=== PATIENT | male | born 1965 | race Caucasian/White ===

== ENCOUNTER 2021-04-16 12:44 | Inpatient (IN) ==
[2021-04-16] MEDS ORDERED: PHARMACY CONSULT - VANCOMYCIN XX SCH (15:00)
[2021-04-16] MEDS: LR 1000 ML IV 1,000 ML IV SCH (15:30)
[2021-04-16 15:35] LABS: BASOPHILS % (AUTO) 0.1 % (0.2-1.0); EOSINOPHILS # (AUTO) 0.1 x10^3/uL (0.0-0.2); EOSINOPHILS % (AUTO) 0.3 % (0.9-2.9); HEMATOCRIT 41.7 % (42.0-54.0); HEMOGLOBIN 13.9 g/dL (13.5-18.0); LYMPHOCYTES # (AUTO) 0.9 X10^3/uL (1.3-2.9); LYMPHOCYTES % (AUTO) 3.9 % (21.0-51.0); MEAN CORPUSCULAR HEMOGLOBIN 28.1 pg (27.0-34.0); MEAN CORPUSCULAR HGB CONC 33.5 g/dL (33.0-35.0); MEAN CORPUSCULAR VOLUME 84.1 fL (80.0-100.0); MEAN PLATELET VOLUME 8.6 fL (7.4-11.0); MONOCYTES # (AUTO) 1.2 x10^3/uL (0.3-0.8); MONOCYTES % (AUTO) 5.6 % (0.0-13.0); NEUTROPHILS # (AUTO) 19.9 x10^3/uL (2.2-4.8); NEUTROPHILS % (AUTO) 90.1 % (42.0-75.0); PLATELET COUNT 271 X10^3/uL (150.0-450.0); RED BLOOD COUNT 4.96 X10^6/uL (4.7-6.0); RED CELL DISTRIBUTION WIDTH 17.8 % (11.6-16.5); WHITE BLOOD COUNT 22.1 X10^3/uL (3.6-10.0)
[2021-04-16 15:42] VITALS: BMI 38.7
[2021-04-16 15:46] LABS: CALCIUM 9.7 mg/dL (8.5-10.1); CARBON DIOXIDE 25.1 mmol/L (21-32); CREATININE 1.77 mg/dL (0.70-1.30); TOTAL PROTEIN 8.3 g/dL (6.4-8.2)
[2021-04-16] MEDS: VANCOMYCIN IV *PREMIX 1 G/200 ML BAG 1 G/200 ML PIGGYBACK IV SCH (16:01)
[2021-04-16 16:22] LABS: ALBUMIN 2.9 g/dL (3.4-5.0); COR CA(FOR HYPOALB) 10.6 mg/dL (8.5-10.1)
[2021-04-16 17:07] LABS: PLATELET MORPHOLOGY COMMENT NORMAL (NORMAL)
[2021-04-16] MEDS: COREG TAB 12.5 MG PO SCH (20:06)
[2021-04-16] MEDS ORDERED: ZOSYN VIAL 3.375 GRAMS 3.375 G in NS 100 ML IV + SPIKE MINIBAG* 100 ML IV SCH (21:00)
[2021-04-17] MEDS: VANCOMYCIN IV *PREMIX 1 G/200 ML BAG 1 G/200 ML PIGGYBACK IV SCH ×3 (00:46→16:39)
[2021-04-17] MEDS: LR 1000 ML IV 1,000 ML IV SCH ×4 (00:54→22:51)
[2021-04-17 08:23] LABS: BASOPHILS % (AUTO) 0.2 % (0.2-1.0); EOSINOPHILS # (AUTO) 0.2 x10^3/uL (0.0-0.2); EOSINOPHILS % (AUTO) 0.9 % (0.9-2.9); HEMATOCRIT 39.6 % (42.0-54.0); HEMOGLOBIN 13.1 g/dL (13.5-18.0); LYMPHOCYTES # (AUTO) 1.1 X10^3/uL (1.3-2.9); LYMPHOCYTES % (AUTO) 5.4 % (21.0-51.0); MEAN CORPUSCULAR HEMOGLOBIN 27.9 pg (27.0-34.0); MEAN CORPUSCULAR HGB CONC 33.1 g/dL (33.0-35.0); MEAN CORPUSCULAR VOLUME 84.3 fL (80.0-100.0); MEAN PLATELET VOLUME 8.4 fL (7.4-11.0); MONOCYTES # (AUTO) 1.3 x10^3/uL (0.3-0.8); MONOCYTES % (AUTO) 6.5 % (0.0-13.0); NEUTROPHILS # (AUTO) 17.3 x10^3/uL (2.2-4.8); PLATELET COUNT 305 X10^3/uL (150.0-450.0); RED BLOOD COUNT 4.69 X10^6/uL (4.7-6.0); RED CELL DISTRIBUTION WIDTH 18.4 % (11.6-16.5); WHITE BLOOD COUNT 19.9 X10^3/uL (3.6-10.0)
[2021-04-17 08:31] LABS: CREATININE 1.51 mg/dL (0.70-1.30); VANCOMYCIN,TROUGH 18.4 ug/mL (15-20)
[2021-04-17 08:32] LABS: ALBUMIN 2.3 g/dL (3.4-5.0); CALCIUM 9.4 mg/dL (8.5-10.1); CARBON DIOXIDE 23.5 mmol/L (21-32); COR CA(FOR HYPOALB) 10.8 mg/dL (8.5-10.1); CREATININE 1.54 mg/dL (0.70-1.30); TOTAL PROTEIN 7.8 g/dL (6.4-8.2)
[2021-04-17] MEDS ORDERED: PATIENT'S HOME MEDICATION PO SCH (09:00)
[2021-04-17] MEDS: COREG TAB 12.5 MG PO SCH ×2 (09:49→22:21)
[2021-04-17] MEDS: PATIENT'S HOME MEDICATION PO SCH ×2 (09:50→21:29)
[2021-04-17] MEDS: FLOMAX PO SCH (09:50)
[2021-04-17] MEDS: PLAVIX PO SCH (09:51)
[2021-04-17] MEDS: ZOSYN VIAL 3.375 GRAMS 3.375 G in NS 100 ML IV + SPIKE MINIBAG* 100 ML IV SCH ×3 (09:51→21:30)
[2021-04-17] MEDS: HumuLIN R SUBCUT PRN ×3 (11:24→22:22)
--- NOTE | 2021-04-17 12:09 | RAD ---
HISTORYSOBSTUDYCHEST x-ray, 1 VIEWCOMPARISONX-ray 02/10/2019FINDINGSProbable CHF. There is likely pulmonary edema. These findings have worsened since prior study. Probable mild fluid in the right minor fissure without blunting of the CP angles. Mild linear atelectasis in the left upper lobe, similar to prior study. No evidence of pneumothorax. Prior cervical spine fusion.IMPRESSIONCHF and pulmonary edema.Electronically signed by: Kam Burrell (Apr 17, 2021 12:06:54)
[2021-04-17] MEDS ORDERED: PHARMACY COMMENT IV ONE (13:30)
[2021-04-17 16:22] LABS: CREATININE 1.63 mg/dL (0.70-1.30); VANCOMYCIN,TROUGH 9.7 ug/mL (15-20)
[2021-04-17] MEDS ORDERED: VANCOMYCIN HCL 500 MG in D5W 100 ML IV 100 ML IV ONE (17:00)
[2021-04-17] MEDS ORDERED: D5W 250 ML IV 250 ML IV ONE (17:32)
[2021-04-17] MEDS ORDERED: VANCOMYCIN HCL ONE (17:32)
[2021-04-17] MEDS: SNACK - Diabetic Appropriate PO SCH (20:46)
[2021-04-17] MEDS ORDERED: LASIX IVP STA (21:14)
[2021-04-17] MEDS: ARIMIDEX PO SCH (22:21)
[2021-04-18] MEDS: ZOSYN VIAL 3.375 GRAMS 3.375 G in NS 100 ML IV + SPIKE MINIBAG* 100 ML IV SCH ×4 (04:00→22:22)
[2021-04-18] MEDS ORDERED: VANCOMYCIN HCL 500 MG, VANCOMYCIN HCL 1 G in D5W 250 ML IV 250 ML IV SCH (05:00)
[2021-04-18 06:05] LABS: BASOPHILS # (AUTO) 0.1 X10^3/uL (0.0-0.1); BASOPHILS % (AUTO) 0.4 % (0.2-1.0); EOSINOPHILS # (AUTO) 0.5 x10^3/uL (0.0-0.2); EOSINOPHILS % (AUTO) 3.7 % (0.9-2.9); HEMATOCRIT 38.8 % (42.0-54.0); HEMOGLOBIN 12.9 g/dL (13.5-18.0); LYMPHOCYTES # (AUTO) 1.1 X10^3/uL (1.3-2.9); LYMPHOCYTES % (AUTO) 7.8 % (21.0-51.0); MEAN CORPUSCULAR HEMOGLOBIN 27.8 pg (27.0-34.0); MEAN CORPUSCULAR HGB CONC 33.2 g/dL (33.0-35.0); MEAN CORPUSCULAR VOLUME 83.6 fL (80.0-100.0); MEAN PLATELET VOLUME 8.2 fL (7.4-11.0); MONOCYTES # (AUTO) 0.9 x10^3/uL (0.3-0.8); MONOCYTES % (AUTO) 6.7 % (0.0-13.0); NEUTROPHILS # (AUTO) 11.1 x10^3/uL (2.2-4.8); NEUTROPHILS % (AUTO) 81.4 % (42.0-75.0); PLATELET COUNT 312 X10^3/uL (150.0-450.0); RED BLOOD COUNT 4.64 X10^6/uL (4.7-6.0); RED CELL DISTRIBUTION WIDTH 18.1 % (11.6-16.5); WHITE BLOOD COUNT 13.7 X10^3/uL (3.6-10.0)
[2021-04-18 06:14] LABS: ALANINE AMINOTRANSFERASE 29 Units/L (12-78); ALBUMIN 2.1 g/dL (3.4-5.0); ALKALINE PHOSPHATASE 115 Units/L (46-116); ASPARTATE AMINO TRANSFERASE 30 Units/L (15-37); BLOOD UREA NITROGEN 26 mg/dL (7-18); CALCIUM 9.4 mg/dL (8.5-10.1); CARBON DIOXIDE 22.5 mmol/L (21-32); CHLORIDE 99 mmol/L (98-107); COR CA(FOR HYPOALB) 10.9 mg/dL (8.5-10.1); COR NA(FOR HYPERGLY) 138 mmol/L (136-145); CREATININE 1.11 mg/dL (0.70-1.30); SODIUM 134 mmol/L (136-145); TOTAL PROTEIN 7.1 g/dL (6.4-8.2); eGFR NON BLACK RACES > 60 (>60)
[2021-04-18] MEDS ORDERED: HumuLIN R ONE (06:29)
[2021-04-18] MEDS: HumuLIN R SUBCUT PRN ×4 (06:36→22:00)
[2021-04-18] MEDS ORDERED: LASIX IVP ONE ×2 (07:32→08:43)
[2021-04-18] MEDS ORDERED: LR 1000 ML IV 1,000 ML IV ONE (08:43)
[2021-04-18] MEDS ORDERED: REGEN-COV VIAL 10 ML, DRUG FILTER EXTENSION SET * 1 EA in NS 100 ML IV 100 ML IV ONE ×2 (09:00)
[2021-04-18] MEDS: COREG TAB 12.5 MG PO SCH ×2 (09:14→22:23)
[2021-04-18] MEDS: LR 1000 ML IV 1,000 ML IV SCH ×2 (09:14→15:02)
[2021-04-18] MEDS: GLUCOPHAGE XR 24-HR PO SCH (09:14)
[2021-04-18] MEDS: FLOMAX PO SCH (09:15)
[2021-04-18] MEDS: PLAVIX PO SCH (09:15)
--- NOTE | 2021-04-18 09:53 | VAS ---
HISTORYLEFT LEG CELLULITIS, EDEMA, REDNESSExtremity pain, swelling, and edema.Study: Bilateral lower extremity Doppler venous ultrasound.TECHNIQUE: Multiple grande scale and color flow Doppler images of the deep venous system were obtained of the [right and left] lower extremity.FINDINGS:The deep venous system of the right and left lower extremities were evaluated from the level of the common femoral veins through the popliteal veins, bilaterally.Normal color flow and augmentation can be observed. In addition, normal compression is seen throughout the deep venous system.IMPRESSION:1. Negative examination for DVT.Electronically signed by: SHA SINGER III (Apr 18, 2021 09:50:29)
[2021-04-18] MEDS ORDERED: PHARMACY CONSULT - LOVENOX XX SCH (10:00)
[2021-04-18] MEDS: LOVENOX INJ 40 MG SYR SC SCH (10:13)
[2021-04-18] MEDS ORDERED: MILK OF MAGNESIA PO PRN (11:06)
[2021-04-18] MEDS: VANCOMYCIN IV *PREMIX 1.5 G/300 ML BAG 1.5 G/300 ML PIGGYBACK IV SCH (16:19)
[2021-04-18] MEDS ORDERED: NORCO 10/325 TAB ONE (17:30)
[2021-04-18] MEDS: NORCO 10/325 TAB PO PRN (17:32)
[2021-04-18] MEDS: COLACE CAP 100 MG PO SCH (22:22)
[2021-04-18] MEDS: SNACK - Diabetic Appropriate PO SCH (22:22)
[2021-04-18] MEDS: ARIMIDEX PO SCH (22:23)
[2021-04-19] MEDS: NORCO 10/325 TAB PO PRN ×2 (00:40→18:52)
[2021-04-19] MEDS: ZOSYN VIAL 3.375 GRAMS 3.375 G in NS 100 ML IV + SPIKE MINIBAG* 100 ML IV SCH ×4 (02:55→21:15)
[2021-04-19] MEDS ORDERED: PIGGYBACK IV ONE (04:47)
[2021-04-19] MEDS ORDERED: VANCOMYCIN IV ONE (04:47)
[2021-04-19] MEDS: VANCOMYCIN IV *PREMIX 1.5 G/300 ML BAG 1.5 G/300 ML PIGGYBACK IV SCH ×2 (04:57→17:58)
[2021-04-19 06:58] LABS: BASOPHILS # (AUTO) 0.1 X10^3/uL (0.0-0.1); BASOPHILS % (AUTO) 0.5 % (0.2-1.0); EOSINOPHILS # (AUTO) 0.6 x10^3/uL (0.0-0.2); EOSINOPHILS % (AUTO) 5.3 % (0.9-2.9); HEMATOCRIT 40.7 % (42.0-54.0); HEMOGLOBIN 13.5 g/dL (13.5-18.0); LYMPHOCYTES # (AUTO) 1.3 X10^3/uL (1.3-2.9); LYMPHOCYTES % (AUTO) 11.2 % (21.0-51.0); MEAN CORPUSCULAR HEMOGLOBIN 27.8 pg (27.0-34.0); MEAN CORPUSCULAR HGB CONC 33.1 g/dL (33.0-35.0); MEAN CORPUSCULAR VOLUME 83.9 fL (80.0-100.0); MEAN PLATELET VOLUME 7.9 fL (7.4-11.0); MONOCYTES % (AUTO) 9.1 % (0.0-13.0); NEUTROPHILS # (AUTO) 8.4 x10^3/uL (2.2-4.8); NEUTROPHILS % (AUTO) 73.9 % (42.0-75.0); PLATELET COUNT 363 X10^3/uL (150.0-450.0); RED BLOOD COUNT 4.85 X10^6/uL (4.7-6.0); RED CELL DISTRIBUTION WIDTH 18.1 % (11.6-16.5); WHITE BLOOD COUNT 11.4 X10^3/uL (3.6-10.0)
[2021-04-19 07:14] LABS: ALANINE AMINOTRANSFERASE 31 Units/L (12-78); ALBUMIN 2.1 g/dL (3.4-5.0); ALKALINE PHOSPHATASE 115 Units/L (46-116); ASPARTATE AMINO TRANSFERASE 22 Units/L (15-37); BLOOD UREA NITROGEN 20 mg/dL (7-18); CALCIUM 9.2 mg/dL (8.5-10.1); CHLORIDE 99 mmol/L (98-107); COR CA(FOR HYPOALB) 10.7 mg/dL (8.5-10.1); COR NA(FOR HYPERGLY) 141 mmol/L (136-145); SODIUM 138 mmol/L (136-145); TOTAL PROTEIN 7.3 g/dL (6.4-8.2); eGFR NON BLACK RACES > 60 (>60)
[2021-04-19] MEDS ORDERED: COZAAR PO SCH (10:00)
[2021-04-19] MEDS: FLOMAX PO SCH (10:01)
[2021-04-19] MEDS: LOVENOX INJ 40 MG SYR SC SCH (10:02)
[2021-04-19] MEDS: PLAVIX PO SCH (10:05)
[2021-04-19] MEDS: LR 1000 ML IV 1,000 ML IV SCH ×4 (10:21→23:00)
[2021-04-19] MEDS: GLUCOPHAGE XR 24-HR PO SCH (10:23)
[2021-04-19] MEDS: HumuLIN R SUBCUT PRN ×3 (12:46→21:00)
[2021-04-19] MEDS ORDERED: PHARMACY COMMENT IV ONE (16:30)
[2021-04-19 17:41] LABS: CREATININE 0.87 mg/dL (0.70-1.30); VANCOMYCIN,TROUGH 10.3 ug/mL (15-20)
[2021-04-19] MEDS: SNACK - Diabetic Appropriate PO SCH (20:05)
[2021-04-19] MEDS: ARIMIDEX PO SCH (21:06)
[2021-04-19] MEDS: COLACE CAP 100 MG PO SCH (21:07)
[2021-04-19] MEDS: COREG TAB 12.5 MG PO SCH (21:15)
[2021-04-20] MEDS: NORCO 10/325 TAB PO PRN (03:44)
[2021-04-20] MEDS: ZOSYN VIAL 3.375 GRAMS 3.375 G in NS 100 ML IV + SPIKE MINIBAG* 100 ML IV SCH ×2 (03:46→08:41)
[2021-04-20] MEDS: HumuLIN R SUBCUT PRN ×2 (03:47→06:21)
[2021-04-20] MEDS: VANCOMYCIN IV *PREMIX 1.5 G/300 ML BAG 1.5 G/300 ML PIGGYBACK IV SCH (05:51)
[2021-04-20 07:04] LABS: BASOPHILS # (AUTO) 0.1 X10^3/uL (0.0-0.1); BASOPHILS % (AUTO) 0.5 % (0.2-1.0); EOSINOPHILS # (AUTO) 0.5 x10^3/uL (0.0-0.2); EOSINOPHILS % (AUTO) 4.5 % (0.9-2.9); HEMATOCRIT 41.3 % (42.0-54.0); HEMOGLOBIN 13.6 g/dL (13.5-18.0); LYMPHOCYTES # (AUTO) 1.6 X10^3/uL (1.3-2.9); LYMPHOCYTES % (AUTO) 13.4 % (21.0-51.0); MEAN CORPUSCULAR HEMOGLOBIN 27.5 pg (27.0-34.0); MEAN CORPUSCULAR VOLUME 83.4 fL (80.0-100.0); MONOCYTES % (AUTO) 8.5 % (0.0-13.0); NEUTROPHILS # (AUTO) 8.5 x10^3/uL (2.2-4.8); NEUTROPHILS % (AUTO) 73.1 % (42.0-75.0); PLATELET COUNT 415 X10^3/uL (150.0-450.0); RED BLOOD COUNT 4.94 X10^6/uL (4.7-6.0); RED CELL DISTRIBUTION WIDTH 17.9 % (11.6-16.5); WHITE BLOOD COUNT 11.6 X10^3/uL (3.6-10.0)
[2021-04-20 07:13] LABS: ALANINE AMINOTRANSFERASE 30 Units/L (12-78); ALBUMIN 2.1 g/dL (3.4-5.0); ALKALINE PHOSPHATASE 102 Units/L (46-116); ASPARTATE AMINO TRANSFERASE 18 Units/L (15-37); BLOOD UREA NITROGEN 11 mg/dL (7-18); CARBON DIOXIDE 29.1 mmol/L (21-32); CHLORIDE 101 mmol/L (98-107); COR CA(FOR HYPOALB) 10.5 mg/dL (8.5-10.1); COR NA(FOR HYPERGLY) 141 mmol/L (136-145); CREATININE 0.83 mg/dL (0.70-1.30); SODIUM 138 mmol/L (136-145); TOTAL PROTEIN 7.2 g/dL (6.4-8.2); eGFR NON BLACK RACES > 60 (>60)
[2021-04-20] MEDS: PLAVIX PO SCH (08:44)
[2021-04-20] MEDS: LOVENOX INJ 40 MG SYR SC SCH (08:45)
[2021-04-20] MEDS: GLUCOPHAGE XR 24-HR PO SCH (08:46)
[2021-04-20] MEDS: COREG TAB 12.5 MG PO SCH (08:46)
[2021-04-20] MEDS: FLOMAX PO SCH (08:47)
[2021-04-20] MEDS ORDERED: ZESTRIL TAB 40 MG PO SCH (09:00)
[2021-04-20 10:04] VITALS: BP 138/68
== END 2021-04-20 12:25 | disposition home or self-care (01) | DRG 603 ==
LOC: OBS → OBSVTOIN 12:47
PROVIDERS: ADMIT Obstetrics & Gynecology Obstetrics; ATTEND Obstetrics & Gynecology Obstetrics
DX: L03.116 Cellulitis of left lower limb; Z20.822 Contact with and (suspected) exposure to COVID-19; R06.02 Shortness of breath; I50.9 Heart failure, unspecified

== ENCOUNTER 2021-04-28 16:00 | Inpatient (IN) ==
[2021-04-28 16:28] VITALS: BMI 38.0
--- NOTE | 2021-04-28 19:42 | DR.EXTPAIN ---
HPI Time seen Time Seen by Provider: 04/28/21 19:32 PCP Primary Care Physician: ANGELINA HPI Comment HPI Comment: According to pt he was admitted to hospital for iv antibiotics,approx 2 week ago after failed outpatient treatment for left leg cellulitis. He did have venous doppler study done to make sure there was no DVT. Pt was discharged on oral antibiotics and now concerned that he may need admission again as oral antibiotics are not helpful. leg is becoming more swollen and painful .Pt has hx of DM type2 uncontrolled with blood sugar running over 200 Complaint/Symptoms Chief Complaint Doctor Comments: left leg pain and swelling Chief Complaint:: PT C/O LT LOWER LEG. PT STATES HE WAS ADMITTED LAST WEEK FOR LLE CELLULITIS. PT WAS SENT HOME ON ORAL ANTIBIOTICS. PT STATES HIS LEG IS GETTING WORSE. PT STATES HE HAS BEEN KEEPING THE DRESSING CHANGED DIRECTED. PT STATES TH REDNESS AND SWELLING IS GETTING WORSE. COVID-19 Coronavirus risk:travel/contact w/high risk person: No Has patient experienced Coronavirus symptoms: No Nurses notes reviewed Nurses Notes Review: Yes Source History Provided: Patient Mode of arrival Mode of Arrival: Ambulatory Timing Onset of Chief Complaint: 04/14/21 Context History of: None Associated signs and symptoms Associated Signs and Symptoms: None PMH PMH Past Medical History: No Past Medical History: CVA, Diabetes and Dyslipidemia Past Surgical History: Yes Surgical History: Appendectomy and Ortho Surgery Past Surgical History Comment: BACK SURGERY, FOOT SURGERY Family History History of Family Medical Conditions: No Social History Does any household member use tobacco: No Alcohol Use: None Do you use any recreational Drugs:: No Lives With: Alone Travel Risk Coronavirus risk:travel/contact w/high risk person: No Has patient experienced Coronavirus symptoms: No Infectious screening In the last 2 months have you had wt loss of >10#?: NO Have you had fever, night sweats or hemotysis?: No Have you traveled outside the country in the last 6 months?: No Isolation: Standard ROS Review of Systems Constitutional: No Symptoms Reported Eyes: No Symptoms Reported ENTM: No Symptoms Reported Respiratoy: No Symptoms Reported Cardiovascular: No Symptoms Reported Gastrointestinal/Abdominal: No Symptoms Reported Genitourinary: No Symptoms Reported Musculoskeletal: See HPI Integumentary: No Symptoms Reported PE Vital Signs Vitals: Temperature 97.4 F Pulse Rate 110 Respiratory Rate 20 Blood Pressure [Left Arm] 138/68 Blood Pressure 131/69 O2 Sat by Pulse Oximetry 96 General Limitations: No Limitations General Appearance: Alert and Anxious Head Head Exam: Atraumatic and Normocephalic Eyes Eye exam: PERRL and EOMI ENT ENT Exam: Normal Oropharynx and Mucous Membranes Moist Neck Neck Exam: Normal Inspection and Full ROM Chest Chest Inspection: Normal Inspection and Symmetric Chest Wall Rise Respiratory Respiratory Exam: Normal Lung Sounds Bilat Respiratory Exam: Bilateral: Clear to Auscultation Abdominal Exam Abdominal Exam: Normal Inspection, Normal Bowel Sounds and Soft Other Exam Other Exam: left lower ext pos erythematous swollen 30 cm leg and foot ulcer with central necrotic area of 12x9 cm.hard to feel peripheral pulses due to swelling MDM Differential Diagnosis Differential Diagnosis: Other ( left leg and foot ulcer lateral aspect ) COURSE Treatment Treatment: xray of left tib fib to check for osteomyelitis spoke with Dr MCCAULEY AGREED TO ACCEPT PATIHERON WILL ADMIT UNDER HIS CARE ROR Labs Reviewed Result Diagrams: 04/28/21 20:00 04/28/21 20:00 Laboratory: WBC 11.6 X10^3/uL (3.6-10.0) H 04/28/21 20:00 RBC 4.57 X10^6/uL (4.7-6.0) L 04/28/21 20:00 Hgb 12.7 g/dL (13.5-18.0) L 04/28/21 20:00 Hct 38.7 % (42.0-54.0) L 04/28/21 20:00 MCV 84.6 fL (80.0-100.0) 04/28/21 20:00 MCH 27.8 pg (27.0-34.0) 04/28/21 20:00 MCHC 32.9 g/dL (33.0-35.0) L 04/28/21 20:00 RDW 16.3 % (11.6-16.5) 04/28/21 20:00 Plt Count 316 X10^3/uL (150.0-450.0) 04/28/21 20:00 MPV 8.0 fL (7.4-11.0) 04/28/21 20:00 Neut % (Auto) 66.7 % (42.0-75.0) 04/28/21 20:00 Lymph % (Auto) 21.6 % (21.0-51.0) 04/28/21 20:00 [place] % (Auto) 8.3 % (0.0-13.0) 04/28/21 20:00 Eos % (Auto) 2.4 % (0.9-2.9) 04/28/21 20:00 Baso % (Auto) 1.0 % (0.2-1.0) 04/28/21 20:00 Neut # (Auto) 7.8 x10^3/uL (2.2-4.8) H 04/28/21 20:00 Lymph # (Auto) 2.5 X10^3/uL (1.3-2.9) 04/28/21 20:00 [place] # (Auto) 1.0 x10^3/uL (0.3-0.8) H 04/28/21 20:00 Eos # (Auto) 0.3 x10^3/uL (0.0-0.2) H 04/28/21 20:00 Baso # (Auto) 0.1 X10^3/uL (0.0-0.1) 04/28/21 20:00 Absolute Nucleated RBC 0.0 /100WBC 04/28/21 20:00 Sodium 139 mmol/L (136-145) 04/28/21 20:00 Corrected Sodium 140 mmol/L (136-145) 04/28/21 20:00 Potassium 4.3 mmol/L (3.5-5.1) 04/28/21 20:00 Chloride 101 mmol/L (98-107) 04/28/21 20:00 Carbon Dioxide 28.5 mmol/L (21-32) 04/28/21 20:00 BUN 10 mg/dL (7-18) 04/28/21 20:00 Creatinine 1.06 mg/dL (0.70-1.30) 04/28/21 20:00 Est GFR (MDRD) Af Amer > 60 (>60) 04/28/21 20:00 Est GFR (MDRD) Non-Af > 60 (>60) 04/28/21 20:00 Glucose 156 mg/dL (65-99) H 04/28/21 20:00 Hemoglobin A1c 9.3 % 04/28/21 20:00 Calcium 9.1 mg/dL (8.5-10.1) 04/28/21 20:00 Corrected Calcium 10.1 mg/dL (8.5-10.1) 04/28/21 20:00 Total Bilirubin 0.50 mg/dL (0.2-1.0) 04/28/21 20:00 AST 15 Units/L (15-37) 04/28/21 20:00 ALT 24 Units/L (12-78) 04/28/21 20:00 Alkaline Phosphatase 109 Units/L (46-116) 04/28/21 20:00 Total Protein 7.6 g/dL (6.4-8.2) 04/28/21 20:00 Albumin 2.7 g/dL (3.4-5.0) L 04/28/21 20:00 Globulin 4.9 g/dL (2.5-4.5) H 04/28/21 20:00 Albumin/Globulin Ratio 0.6 Ratio (1.1-2.1) L 04/28/21 20:00 SARS-CoV-2 (PCR) Negative (NEGATIVE) 04/28/21 21:22 Influenza Type A (PCR) Negative (NEGATIVE) 04/28/21 21:22 Influenza Type B (PCR) Negative (NEGATIVE) 04/28/21 21:22 RSV (PCR) Negative (NEGATIVE) 04/28/21 21:22 Opioid Opioid Risk Tool Age (Danny box if 16-45): No History of Preadolescent Sexual Abuse: No Total: 0 Total Score Risk Category: Low Risk Copyright: [facility] predicting aberrant behaviors Diagnosis Discharge Problem: Cellulitis of left lower limb Ulcer of left lower extremity Qualifiers: Non-pressure ulcer stage: unspecified non-pressure ulcer stage Qualified Code(s): L97.929 - Non-pressure chronic ulcer of unspecified part of left lower leg with unspecified severity Instructions Forms: Precautions for COVID19 [facility] Patient Portal Social Distancing
--- NOTE | 2021-04-28 19:59 | RAD ---
EXAM: LEFT TIBIA/FIBULA X-RAY SERIESHISTORY: Pain. Redness. Swelling.TECHNIQUE: 2 viewsCOMPARISON: None available.FINDINGS:There is no acute bony fracture, or joint subluxation or dislocation seen. No evidence for inflammatory or degenerative arthritis is seen. No focal bone erosion or sclerosis is seen. There is suggestion of inferior pretibial soft tissue swelling; rule out cellulitis. No soft tissue emphysema, radiodense soft tissue abnormality or foreign body is seen.IMPRESSION:1. No acute bony fracture, or joint subluxation or dislocation seen.2. Suggestion of inferior pretibial soft tissue swelling; rule out cellulitis.3. No soft tissue emphysema, radiodense soft tissue abnormality or foreign body seen.Electronically signed by: Lalit Carney (Apr 28, 2021 19:57:29)
[2021-04-28 20:21] LABS: BASOPHILS # (AUTO) 0.1 X10^3/uL (0.0-0.1); EOSINOPHILS # (AUTO) 0.3 x10^3/uL (0.0-0.2); EOSINOPHILS % (AUTO) 2.4 % (0.9-2.9); HEMATOCRIT 38.7 % (42.0-54.0); HEMOGLOBIN 12.7 g/dL (13.5-18.0); LYMPHOCYTES # (AUTO) 2.5 X10^3/uL (1.3-2.9); LYMPHOCYTES % (AUTO) 21.6 % (21.0-51.0); MEAN CORPUSCULAR HEMOGLOBIN 27.8 pg (27.0-34.0); MEAN CORPUSCULAR HGB CONC 32.9 g/dL (33.0-35.0); MEAN CORPUSCULAR VOLUME 84.6 fL (80.0-100.0); MONOCYTES % (AUTO) 8.3 % (0.0-13.0); NEUTROPHILS # (AUTO) 7.8 x10^3/uL (2.2-4.8); NEUTROPHILS % (AUTO) 66.7 % (42.0-75.0); PLATELET COUNT 316 X10^3/uL (150.0-450.0); RED BLOOD COUNT 4.57 X10^6/uL (4.7-6.0); RED CELL DISTRIBUTION WIDTH 16.3 % (11.6-16.5); WHITE BLOOD COUNT 11.6 X10^3/uL (3.6-10.0)
[2021-04-28 20:29] LABS: HEMOGLOBIN A1C 9.3 %
[2021-04-28 20:31] LABS: ALANINE AMINOTRANSFERASE 24 Units/L (12-78); ALBUMIN 2.7 g/dL (3.4-5.0); ALKALINE PHOSPHATASE 109 Units/L (46-116); ASPARTATE AMINO TRANSFERASE 15 Units/L (15-37); BLOOD UREA NITROGEN 10 mg/dL (7-18); CALCIUM 9.1 mg/dL (8.5-10.1); CARBON DIOXIDE 28.5 mmol/L (21-32); CHLORIDE 101 mmol/L (98-107); COR CA(FOR HYPOALB) 10.1 mg/dL (8.5-10.1); COR NA(FOR HYPERGLY) 140 mmol/L (136-145); CREATININE 1.06 mg/dL (0.70-1.30); SODIUM 139 mmol/L (136-145); TOTAL PROTEIN 7.6 g/dL (6.4-8.2); eGFR NON BLACK RACES > 60 (>60)
[2021-04-28] MEDS ORDERED: NS 100 ML IV + SPIKE MINIBAG* 100 ML IV ONE (20:58)
[2021-04-28] MEDS ORDERED: ZOSYN VIAL 3.375 GRAMS IV ONE (20:58)
[2021-04-28] MEDS: ZOSYN VIAL 3.375 GRAMS 3.375 G in NS 100 ML IV + SPIKE MINIBAG* 100 ML IV SCH ×2 (21:14→22:21)
[2021-04-28] MEDS ORDERED: TORADOL 30 MG VIAL IVP ONE (22:06)
[2021-04-28] MEDS ORDERED: TORADOL 30 MG VIAL ONE (22:11)
--- NOTE | 2021-04-28 23:51 | DR.H&P ---
H&P History & Physical for Day of: H&P Date: 04/28/21 Chief Complaint Chief Complaint: infection right leg Allergies Allergies Allergy/AdvReac Type Severity Reaction Status Date / Time No Known Drug Allergies Allergy Verified 02/15/19 08:12 History of Present Illness History of Present Illness: 55-year-old male with history of diabetes, hypertension, history of CVA who was admitted approximatly 2 weeks ago with cellulitis of the left leg with blister formation. He was treated with IV antibiotics and transition home on PO antibiotics and returns with worse redness and swelling and cellulitis of the left leg primarily involving the left lateral calf from the head of the fibula to the ankle. There is extensive blister formation. Past Medical History Past Medical History: CVA, Diabetes and Dyslipidemia Past Surgical History Surgical History: Appendectomy, Ortho Surgery and Other (foot surgery, back surgery) Social History Does patient currently use any type of tobacco product: No Does any household member use tobacco: No Alcohol Use: None Medications Home Medications: No Known Drug Allergies Allergy (Verified 02/15/19 08:12) CONTINUE taking the following medications anastrozole 1 mg PO DAILY 04/28/21 [History] aspirin 81 mg PO DAILY 04/28/21 [History] cholecalciferol (vitamin D3) [Vitamin D3] 50 mcg PO DAILY 04/28/21 [History] clindamycin HCl 300 mg PO Q8H 04/28/21 [History] dapagliflozin-metformin [Xigduo XR] 2 tab PO QAM 04/28/21 [History] pioglitazone 30 mg PO DAILY 04/28/21 [History] rifampin 300 mg PO BID 04/28/21 [History] rosuvastatin [Crestor] 20 mg PO DAILY 04/28/21 [History] Labs Result Diagrams: 04/28/21 20:00 04/28/21 20:00 Labs: Laboratory WBC 11.6 X10^3/uL (3.6-10.0) H 04/28/21 20:00 RBC 4.57 X10^6/uL (4.7-6.0) L 04/28/21 20:00 Hgb 12.7 g/dL (13.5-18.0) L 04/28/21 20:00 Hct 38.7 % (42.0-54.0) L 04/28/21 20:00 MCV 84.6 fL (80.0-100.0) 04/28/21 20:00 MCH 27.8 pg (27.0-34.0) 04/28/21 20:00 MCHC 32.9 g/dL (33.0-35.0) L 04/28/21 20:00 RDW 16.3 % (11.6-16.5) 04/28/21 20:00 Plt Count 316 X10^3/uL (150.0-450.0) 04/28/21 20:00 MPV 8.0 fL (7.4-11.0) 04/28/21 20:00 Neut % (Auto) 66.7 % (42.0-75.0) 04/28/21 20:00 Lymph % (Auto) 21.6 % (21.0-51.0) 04/28/21 20:00 [place] % (Auto) 8.3 % (0.0-13.0) 04/28/21 20:00 Eos % (Auto) 2.4 % (0.9-2.9) 04/28/21 20:00 Baso % (Auto) 1.0 % (0.2-1.0) 04/28/21 20:00 Neut # (Auto) 7.8 x10^3/uL (2.2-4.8) H 04/28/21 20:00 Lymph # (Auto) 2.5 X10^3/uL (1.3-2.9) 04/28/21 20:00 [place] # (Auto) 1.0 x10^3/uL (0.3-0.8) H 04/28/21 20:00 Eos # (Auto) 0.3 x10^3/uL (0.0-0.2) H 04/28/21 20:00 Baso # (Auto) 0.1 X10^3/uL (0.0-0.1) 04/28/21 20:00 Absolute Nucleated RBC 0.0 /100WBC 04/28/21 20:00 Sodium 139 mmol/L (136-145) 04/28/21 20:00 Corrected Sodium 140 mmol/L (136-145) 04/28/21 20:00 Potassium 4.3 mmol/L (3.5-5.1) 04/28/21 20:00 Chloride 101 mmol/L (98-107) 04/28/21 20:00 Carbon Dioxide 28.5 mmol/L (21-32) 04/28/21 20:00 BUN 10 mg/dL (7-18) 04/28/21 20:00 Creatinine 1.06 mg/dL (0.70-1.30) 04/28/21 20:00 Est GFR (MDRD) Af Amer > 60 (>60) 04/28/21 20:00 Est GFR (MDRD) Non-Af > 60 (>60) 04/28/21 20:00 Glucose 156 mg/dL (65-99) H 04/28/21 20:00 Hemoglobin A1c 9.3 % 04/28/21 20:00 Calcium 9.1 mg/dL (8.5-10.1) 04/28/21 20:00 Corrected Calcium 10.1 mg/dL (8.5-10.1) 04/28/21 20:00 Total Bilirubin 0.50 mg/dL (0.2-1.0) 04/28/21 20:00 AST 15 Units/L (15-37) 04/28/21 20:00 ALT 24 Units/L (12-78) 04/28/21 20:00 Alkaline Phosphatase 109 Units/L (46-116) 04/28/21 20:00 Total Protein 7.6 g/dL (6.4-8.2) 04/28/21 20:00 Albumin 2.7 g/dL (3.4-5.0) L 04/28/21 20:00 Globulin 4.9 g/dL (2.5-4.5) H 04/28/21 20:00 Albumin/Globulin Ratio 0.6 Ratio (1.1-2.1) L 04/28/21 20:00 SARS-CoV-2 (PCR) Negative (NEGATIVE) 04/28/21 21:22 Influenza Type A (PCR) Negative (NEGATIVE) 04/28/21 21:22 Influenza Type B (PCR) Negative (NEGATIVE) 04/28/21 21:22 RSV (PCR) Negative (NEGATIVE) 04/28/21 21:22 Review of Systems Constitutional: denies No Symptoms Reported, See HPI, Fever, Chills, Sweats, Weakness, Malaise and Other Eyes: denies No Symptoms Reported, See HPI, Pain, Vision Change, Conjunctivae Inflammation, Eyelid Inflammation, Redness and Other ENT: denies No Symptoms Reported, See HPI, Ear Pain, Ear Discharge, Nose Pain, Nose Discharge, Nose Congestion, Mouth Pain, Mouth Swelling, Throat Pain, Throat Swelling and Other Respiratory: denies No Symptoms Reported, See HPI, Cough, Dry, Shortness of Breath, Hemoptysis, SOB with Excertion, Pleuritic Pain, Sputum, Wheezing and Other Cardiovascular: denies No Symptoms Reported, Chest Pain, See HPI, Palpitations, Orthopnea, Paroxysmal Noc. Dyspnea, Edema, Light Headedness and Other Gastrointestinal: denies No Symptoms Reported, See HPI, Nausea, Vomiting, Abdominal Pain, Diarrhea, Constipation, Melena, Hematochezia and Other Genitourinary: denies No Symptoms Reported, See HPI, Dysuria, Frequency, Incontinence, Hematuria, Retention and Other Musculoskeletal: No Symptoms Reported Skin: Other (Significant cellulitis of right lateral leg with blistere formation) Neurological: No Symptoms Reported Physical Exam Vital Signs: Temperature 97.4 F Pulse Rate 110 Respiratory Rate 20 Blood Pressure [Left Arm] 138/68 Blood Pressure 131/69 O2 Sat by Pulse Oximetry 96 Oriented: Normal, Time, Person and Place Eyes: Normal Ear: Normal Nose: Normal Throat: Normal Respiratory: Clear Throughout Cardiovascular: Normal : Normal Auscultation: Bowel Sounds: Normal Palpation: Normal Tenderness: Normal Musculoskeletal: Normal Psychiatric: Normal Mood Description: Calm Speech Pattern: Clear Assessment/Plan (1) Cellulitis of left lower limb: Status: Acute Plan: Begin IV Zosyn , Will need surgical debridement of wound (2) Ulcer of left lower extremity: Qualifiers: Non-pressure ulcer stage: unspecified non-pressure ulcer stage Q ualified Code(s): L97.929 - Non-pressure chronic ulcer of unspecified part of left lower leg with unspecified severity Status: Acute (3) Diabetes: Status: Acute Plan: sliding scale insulin, diabetic diet , Consult Dr. Sharma (4) Hypertension: Status: Acute Plan: home medications Review H&P Reviewed: Yes Patient was examined?: Yes
[2021-04-29] MEDS: LR 1000 ML IV 1,000 ML IV SCH ×4 (01:43→19:03)
[2021-04-29] MEDS: HumuLIN R SC PRN (05:55)
[2021-04-29] MEDS: ZOSYN VIAL 3.375 GRAMS 3.375 G in NS 100 ML IV + SPIKE MINIBAG* 100 ML IV SCH ×3 (05:56→22:00)
[2021-04-29] MEDS: ACTOS PO SCH (08:29)
[2021-04-29] MEDS: PROTONIX TAB 40 MG PO SCH (08:30)
[2021-04-29] MEDS: COREG TAB 25 MG PO SCH ×2 (08:30→22:00)
[2021-04-29] MEDS: ASPIRIN 81 MG CHEWTAB PO SCH (08:30)
[2021-04-29] MEDS: CRESTOR TAB 10 MG PO SCH (08:30)
[2021-04-29] MEDS: ZESTRIL TAB 40 MG PO SCH (08:31)
[2021-04-29] MEDS ORDERED: PHARMACY CONSULT - VANCOMYCIN XX SCH (09:00)
[2021-04-29] MEDS: VANCOMYCIN IV *PREMIX 1 G/200 ML BAG 1 G/200 ML PIGGYBACK IV SCH ×2 (09:41→21:00)
[2021-04-29] MEDS: LOVENOX INJ 40 MG SYR SC SCH (09:41)
--- NOTE | 2021-04-29 11:33 | NOTE.SOAP ---
Soap Note Note for Day of Date of Exam: 04/29/21 Subjective Data Subjective Data: Patient, diabetic, with 2nd admission for severe cellulitis of the left lateral leg. On IV antibiotics. Minimally improved. Objective Data Temperature: 98.5 F Pulse Rate: 91 Respiratory Rate: 18 Blood Pressure: 147/79 O2 Sat by Pulse Oximetry: 96 Objective Data: Crusting and drainage left leg unchanged , HgB = 12.7, Glucose= 156, WBC=11.6 Assessment Assessment: Cellulitis of left leg, Vancomycin added to Zosyn. Plan Plan: Plan surgical debridement of the left leg in OR on 05/01/2021
[2021-04-29] MEDS ORDERED: ZOSYN VIAL 3.375 GRAMS IV ONE (13:53)
[2021-04-29] MEDS ORDERED: NS 100 ML IV + SPIKE MINIBAG* 100 ML IV ONE (13:54)
[2021-04-29] MEDS: NORCO 10/325 TAB PO PRN ×2 (15:47→22:09)
[2021-04-29] MEDS: ARIMIDEX PO SCH (22:00)
[2021-04-30] MEDS: NORCO 10/325 TAB PO PRN ×3 (03:50→21:00)
[2021-04-30] MEDS: LR 1000 ML IV 1,000 ML IV SCH ×3 (04:29→17:14)
[2021-04-30] MEDS: VANCOMYCIN IV *PREMIX 1 G/200 ML BAG 1 G/200 ML PIGGYBACK IV SCH (05:03)
[2021-04-30 06:17] LABS: BASOPHILS # (AUTO) 0.1 X10^3/uL (0.0-0.1); EOSINOPHILS # (AUTO) 0.3 x10^3/uL (0.0-0.2); EOSINOPHILS % (AUTO) 3.6 % (0.9-2.9); HEMATOCRIT 37.9 % (42.0-54.0); HEMOGLOBIN 12.7 g/dL (13.5-18.0); LYMPHOCYTES # (AUTO) 2.5 X10^3/uL (1.3-2.9); LYMPHOCYTES % (AUTO) 27.1 % (21.0-51.0); MEAN CORPUSCULAR HEMOGLOBIN 28.4 pg (27.0-34.0); MEAN CORPUSCULAR HGB CONC 33.5 g/dL (33.0-35.0); MEAN CORPUSCULAR VOLUME 84.7 fL (80.0-100.0); MEAN PLATELET VOLUME 7.8 fL (7.4-11.0); MONOCYTES # (AUTO) 0.9 x10^3/uL (0.3-0.8); MONOCYTES % (AUTO) 9.9 % (0.0-13.0); NEUTROPHILS # (AUTO) 5.3 x10^3/uL (2.2-4.8); NEUTROPHILS % (AUTO) 58.4 % (42.0-75.0); PLATELET COUNT 311 X10^3/uL (150.0-450.0); RED BLOOD COUNT 4.48 X10^6/uL (4.7-6.0); RED CELL DISTRIBUTION WIDTH 16.2 % (11.6-16.5); WHITE BLOOD COUNT 9.1 X10^3/uL (3.6-10.0)
[2021-04-30 06:19] LABS: ALANINE AMINOTRANSFERASE 23 Units/L (12-78); ALBUMIN 2.5 g/dL (3.4-5.0); ALKALINE PHOSPHATASE 102 Units/L (46-116); ASPARTATE AMINO TRANSFERASE 19 Units/L (15-37); BLOOD UREA NITROGEN 6 mg/dL (7-18); CALCIUM 9.3 mg/dL (8.5-10.1); CARBON DIOXIDE 30.1 mmol/L (21-32); CHLORIDE 100 mmol/L (98-107); COR CA(FOR HYPOALB) 10.5 mg/dL (8.5-10.1); COR NA(FOR HYPERGLY) 137 mmol/L (136-145); SODIUM 136 mmol/L (136-145); TOTAL PROTEIN 7.5 g/dL (6.4-8.2); eGFR NON BLACK RACES > 60 (>60)
[2021-04-30] MEDS: ZOSYN VIAL 3.375 GRAMS 3.375 G in NS 100 ML IV + SPIKE MINIBAG* 100 ML IV SCH (07:05)
[2021-04-30] MEDS: PROTONIX TAB 40 MG PO SCH (08:20)
[2021-04-30] MEDS: ZESTRIL TAB 40 MG PO SCH (08:20)
[2021-04-30] MEDS: ASPIRIN 81 MG CHEWTAB PO SCH (08:41)
[2021-04-30] MEDS: ACTOS PO SCH (08:41)
[2021-04-30] MEDS: COREG TAB 25 MG PO SCH ×2 (08:42→21:00)
[2021-04-30] MEDS: CRESTOR TAB 10 MG PO SCH (08:42)
[2021-04-30] MEDS: LOVENOX INJ 40 MG SYR SC SCH (08:42)
[2021-04-30] MEDS ORDERED: PHARMACY COMMENT IV ONE (13:30)
[2021-04-30 14:07] LABS: CREATININE 1.02 mg/dL (0.70-1.30); VANCOMYCIN,TROUGH 6.4 ug/mL (15-20)
[2021-04-30] MEDS: VANCOMYCIN IV *PREMIX 1.5 G/300 ML BAG 1.5 G/300 ML PIGGYBACK IV SCH ×2 (14:32→21:00)
[2021-04-30] MEDS: ZOSYN VIAL 4.5 GRAMS 4.5 G in NS 100 ML IV + SPIKE MINIBAG* 100 ML IV SCH ×2 (17:14→23:00)
[2021-04-30] MEDS: HumuLIN R SC PRN (17:15)
[2021-04-30] MEDS: ARIMIDEX PO SCH (21:00)
--- NOTE | 2021-04-30 22:32 | NOTE.SOAP ---
Soap Note Note for Day of Date of Exam: 04/30/21 Subjective Data Subjective Data: Admitted with significant cellulitis left calf with wound left calf. Objective Data Temperature: 98.3 F Pulse Rate: 94 Respiratory Rate: 20 Blood Pressure: 148/70 O2 Sat by Pulse Oximetry: 95 Objective Data: Redness and edema improved left calf Assessment Assessment: cellulitis left calf with wound Plan Plan: Continue IV antibiotics. Debride left calf wound in the OR tomorrow.
[2021-05-01] MEDS: LR 1000 ML IV 1,000 ML IV SCH ×4 (04:30→17:54)
[2021-05-01] MEDS: VANCOMYCIN IV *PREMIX 1.5 G/300 ML BAG 1.5 G/300 ML PIGGYBACK IV SCH ×3 (05:01→22:02)
[2021-05-01] MEDS: ZOSYN VIAL 4.5 GRAMS 4.5 G in NS 100 ML IV + SPIKE MINIBAG* 100 ML IV SCH ×3 (06:49→22:03)
[2021-05-01] MEDS ORDERED: BETADINE SOLN ONE ×2 (08:44→09:00)
[2021-05-01] MEDS ORDERED: VERSED ONE (09:05)
[2021-05-01] MEDS ORDERED: DIPRIVAN VIAL ONE (09:05)
[2021-05-01] MEDS ORDERED: FENTANYL VIAL INJ 100 mcg ONE (09:06)
--- NOTE | 2021-05-01 09:37 | OR.IMMED ---
IMMEDIATE POST-OP NOTE Immediate Post-Op Note Pre-Op Diagnosis: cellulitis left leg with open draining wounds Post-Op Diagnosis: same Procedure: excisional debridement of left leg lateral calf and dorsum of left foot Description of Procedure: see operative summary Surgeon/Chamber Magistrate: Cruzito Findings: 45x 15 wound to left lateral calf and dorsum left foot with drainage and eschar Specimens Removed: as above Estimated Blood Loss: < 10 cc Drains: NONE Complications: none Progress Notes: return to floor, continue IV antibiotics and plan d/c tomorrow on po antibiotics and home health. Condition: Stable
[2021-05-01] MEDS: ACTOS PO SCH (10:45)
[2021-05-01] MEDS: ASPIRIN 81 MG CHEWTAB PO SCH (10:46)
[2021-05-01] MEDS: COREG TAB 25 MG PO SCH ×2 (10:46→20:35)
[2021-05-01] MEDS: PROTONIX TAB 40 MG PO SCH (10:46)
[2021-05-01] MEDS: CRESTOR TAB 10 MG PO SCH (10:46)
[2021-05-01] MEDS: ZESTRIL TAB 40 MG PO SCH (10:46)
[2021-05-01] MEDS ORDERED: LR 1000 ML IV 1,000 ML IV ONE (10:49)
[2021-05-01] MEDS ORDERED: LOVENOX INJ 40 MG SYR SC ONE (10:49)
[2021-05-01] MEDS: LOVENOX INJ 40 MG SYR SC SCH ×2 (10:51→10:52)
[2021-05-01] MEDS: NORCO 10/325 TAB PO PRN ×3 (10:57→22:07)
[2021-05-01] MEDS: HumuLIN R SC PRN ×2 (12:04→16:23)
[2021-05-01] MEDS ORDERED: PHARMACY COMMENT IV NR (13:30)
[2021-05-01 14:40] LABS: CREATININE 0.78 mg/dL (0.70-1.30)
--- NOTE | 2021-05-01 15:57 | DR.OPNOTE ---
OP NOTE Pre-Op Diagnosis: wound /cellulitis left lateral calf and foot 45x 15 cm x 0.3 cm Post-Op Diagnosis: same Procedure Date Date Of Procedure: 05/01/21 Procedure: Patient was taken to the operating suite and placed in the supine position and the entire left leg prepped and draped in sterile fashion. He was given IV sedation. Timeout done for the procedure. The wound with drainage and cellulitis was to the lateral left calf extending onto the dorsum of the left foot and measured 45 x 15 x 0.3 cm. All crust was removed with a 15 knife blade and blunt dissection. There was 2 areas of drainage noted ,one in the mid-left calf and the other on the dorsum of the foot. These were evacuated and removed with blunt and sharp dissection. There was no penetration into the muscle or the fat of the leg. Hemostasis obtained with electrocautery. Xero Form gauze placed over the open areas of the wound and this dressed with 4 x 4's, acrylics wrap, six-inch Eliezer wrap. The patient tolerated this well. This is an excisional debridement. Anesthesia Comment: MAC Findings: As above Specimen/Pathology: shantel Type of Fluids Used:: Lactated Ringers EBL: < 10 cc Drains/Tubes Placed: None Complications:: none Needle/Sponge Count:: correct Disposition/Condition: Pt. tolerated procedure without difficulty. Taken to PACU in stable condition.
[2021-05-01] MEDS: ARIMIDEX PO SCH (20:35)
[2021-05-02] MEDS: VANCOMYCIN IV *PREMIX 1.5 G/300 ML BAG 1.5 G/300 ML PIGGYBACK IV SCH (05:05)
[2021-05-02] MEDS: LR 1000 ML IV 1,000 ML IV SCH ×2 (05:13→08:35)
[2021-05-02 06:27] LABS: BASOPHILS # (AUTO) 0.1 X10^3/uL (0.0-0.1); EOSINOPHILS # (AUTO) 0.2 x10^3/uL (0.0-0.2); EOSINOPHILS % (AUTO) 3.2 % (0.9-2.9); HEMATOCRIT 35.5 % (42.0-54.0); HEMOGLOBIN 11.8 g/dL (13.5-18.0); LYMPHOCYTES % (AUTO) 27.5 % (21.0-51.0); MEAN CORPUSCULAR HGB CONC 33.4 g/dL (33.0-35.0); MEAN CORPUSCULAR VOLUME 83.9 fL (80.0-100.0); MEAN PLATELET VOLUME 7.9 fL (7.4-11.0); MONOCYTES # (AUTO) 0.8 x10^3/uL (0.3-0.8); MONOCYTES % (AUTO) 10.1 % (0.0-13.0); NEUTROPHILS # (AUTO) 4.3 x10^3/uL (2.2-4.8); NEUTROPHILS % (AUTO) 58.2 % (42.0-75.0); PLATELET COUNT 330 X10^3/uL (150.0-450.0); RED BLOOD COUNT 4.23 X10^6/uL (4.7-6.0); RED CELL DISTRIBUTION WIDTH 16.1 % (11.6-16.5); WHITE BLOOD COUNT 7.5 X10^3/uL (3.6-10.0)
[2021-05-02 06:40] LABS: ALANINE AMINOTRANSFERASE 20 Units/L (12-78); ALBUMIN 2.6 g/dL (3.4-5.0); ALKALINE PHOSPHATASE 94 Units/L (46-116); ASPARTATE AMINO TRANSFERASE 14 Units/L (15-37); BLOOD UREA NITROGEN 5 mg/dL (7-18); CALCIUM 8.9 mg/dL (8.5-10.1); CARBON DIOXIDE 27.7 mmol/L (21-32); CHLORIDE 102 mmol/L (98-107); COR NA(FOR HYPERGLY) 138 mmol/L (136-145); CREATININE 0.62 mg/dL (0.70-1.30); SODIUM 136 mmol/L (136-145); TOTAL PROTEIN 7.4 g/dL (6.4-8.2); eGFR NON BLACK RACES > 60 (>60)
[2021-05-02] MEDS: ZOSYN VIAL 4.5 GRAMS 4.5 G in NS 100 ML IV + SPIKE MINIBAG* 100 ML IV SCH (06:47)
[2021-05-02] MEDS: HumuLIN R SC PRN ×2 (06:47→11:52)
[2021-05-02] MEDS: NORCO 10/325 TAB PO PRN (07:27)
[2021-05-02] MEDS: ZESTRIL TAB 40 MG PO SCH (08:33)
[2021-05-02] MEDS: ACTOS PO SCH (08:33)
[2021-05-02] MEDS: PROTONIX TAB 40 MG PO SCH (08:33)
[2021-05-02] MEDS: ASPIRIN 81 MG CHEWTAB PO SCH (08:34)
[2021-05-02] MEDS: CRESTOR TAB 10 MG PO SCH (08:34)
[2021-05-02] MEDS: COREG TAB 25 MG PO SCH (08:34)
[2021-05-02] MEDS: LOVENOX INJ 40 MG SYR SC SCH (08:34)
[2021-05-02] MEDS ORDERED: SANTYL EXT ONE (10:24)
--- NOTE | 2021-05-02 12:06 | PCM.DCPLAN ---
DISCHARGE SUMMARY Admission Date Date of Admission: 04/28/21 Discharge Date Discharge Date: 05/02/21 Admission Diagnoses (1) Cellulitis of left lower limb: Status: Acute (2) Ulcer of left lower extremity: Status: Acute (3) Diabetes: Status: Acute (4) Hypertension: Status: Acute Discharge Diagnoses Discharge Diagnosis: same Discharge Medications Discharge Medications: Home Medication List anastrozole 1 mg PO DAILY 04/28/21 [History] aspirin 81 mg PO DAILY 04/28/21 [History] cholecalciferol (vitamin D3) [Vitamin D3] 50 mcg PO DAILY 04/28/21 [History] clindamycin HCl 300 mg PO Q8H 04/28/21 [History] dapagliflozin-metformin [Xigduo XR] 2 tab PO QAM 04/28/21 [History] pioglitazone 30 mg PO DAILY 04/28/21 [History] rifampin 300 mg PO BID 04/28/21 [History] rosuvastatin [Crestor] 20 mg PO DAILY 04/28/21 [History] oxycodone-acetaminophen [Percocet] 1 tab PO Q6H PRN #30 tab MDD 6 05/02/21 [Rx] sulfamethoxazole-trimethoprim [Bactrim DS] 1 tab PO BID #20 tab 05/02/21 [Rx] Prescriptions: oxycodone-acetaminophen [Percocet] [place] sulfamethoxazole-trimethoprim [Bactrim DS] [place] Hospital Course Vital Signs: Temperature 98.8 F Pulse Rate [Brachial] 93 Pulse Rate 93 Respiratory Rate 18 Blood Pressure [Left Arm] 167/79 Blood Pressure 134/82 O2 Sat by Pulse Oximetry 93 Latest Lab Results: Laboratory Last Values WBC 7.5 X10^3/uL (3.6-10.0) 05/02/21 05:39 RBC 4.23 X10^6/uL (4.7-6.0) L 05/02/21 05:39 Hgb 11.8 g/dL (13.5-18.0) L 05/02/21 05:39 Hct 35.5 % (42.0-54.0) L 05/02/21 05:39 MCV 83.9 fL (80.0-100.0) 05/02/21 05:39 MCH 28.0 pg (27.0-34.0) 05/02/21 05:39 MCHC 33.4 g/dL (33.0-35.0) 05/02/21 05:39 RDW 16.1 % (11.6-16.5) 05/02/21 05:39 Plt Count 330 X10^3/uL (150.0-450.0) 05/02/21 05:39 MPV 7.9 fL (7.4-11.0) 05/02/21 05:39 Neut % (Auto) 58.2 % (42.0-75.0) 05/02/21 05:39 Lymph % (Auto) 27.5 % (21.0-51.0) 05/02/21 05:39 [place] % (Auto) 10.1 % (0.0-13.0) 05/02/21 05:39 Eos % (Auto) 3.2 % (0.9-2.9) H 05/02/21 05:39 Baso % (Auto) 1.0 % (0.2-1.0) 05/02/21 05:39 Neut # (Auto) 4.3 x10^3/uL (2.2-4.8) 05/02/21 05:39 Lymph # (Auto) 2.0 X10^3/uL (1.3-2.9) 05/02/21 05:39 [place] # (Auto) 0.8 x10^3/uL (0.3-0.8) 05/02/21 05:39 Eos # (Auto) 0.2 x10^3/uL (0.0-0.2) 05/02/21 05:39 Baso # (Auto) 0.1 X10^3/uL (0.0-0.1) 05/02/21 05:39 Absolute Nucleated RBC 0.0 /100WBC 05/02/21 05:39 Sodium 136 mmol/L (136-145) 05/02/21 05:39 Corrected Sodium 138 mmol/L (136-145) 05/02/21 05:39 Potassium 3.8 mmol/L (3.5-5.1) 05/02/21 05:39 Chloride 102 mmol/L (98-107) 05/02/21 05:39 Carbon Dioxide 27.7 mmol/L (21-32) 05/02/21 05:39 BUN 5 mg/dL (7-18) L 05/02/21 05:39 Creatinine 0.62 mg/dL (0.70-1.30) L 05/02/21 05:39 Est GFR (MDRD) Af Amer > 60 (>60) 05/02/21 05:39 Est GFR (MDRD) Non-Af > 60 (>60) 05/02/21 05:39 Glucose 184 mg/dL (65-99) H 05/02/21 05:39 POC Glucose (mg/dL) 223 mg/dL (65-99) H 05/02/21 11:44 Hemoglobin A1c 9.3 % 04/28/21 20:00 Calcium 8.9 mg/dL (8.5-10.1) 05/02/21 05:39 Corrected Calcium 10.0 mg/dL (8.5-10.1) 05/02/21 05:39 Total Bilirubin 0.40 mg/dL (0.2-1.0) 05/02/21 05:39 AST 14 Units/L (15-37) L 05/02/21 05:39 ALT 20 Units/L (12-78) 05/02/21 05:39 Alkaline Phosphatase 94 Units/L (46-116) 05/02/21 05:39 Total Protein 7.4 g/dL (6.4-8.2) 05/02/21 05:39 Albumin 2.6 g/dL (3.4-5.0) L 05/02/21 05:39 Globulin 4.8 g/dL (2.5-4.5) H 05/02/21 05:39 Albumin/Globulin Ratio 0.5 Ratio (1.1-2.1) L 05/02/21 05:39 Vancomycin Trough 13.0 ug/mL (15-20) L 05/01/21 13:40 SARS-CoV-2 (PCR) Negative (NEGATIVE) 04/28/21 21:22 Influenza Type A (PCR) Negative (NEGATIVE) 04/28/21 21:22 Influenza Type B (PCR) Negative (NEGATIVE) 04/28/21 21:22 RSV (PCR) Negative (NEGATIVE) 04/28/21 21:22 Hospital Course: This patient had been admitted 2 weeks previously with significant cellulitis of the left leg primarily involving the left lateral calf and dorsum of the left foot. He was treated with IV antibiotics and discharged home on po antibiotics and had significant recurrence of cellulitis and drainage. Patient is diabetic. He was admitted and placed on IV Zosyn and IV vancomycin. On May 01 hr underwent debridement of the wound. It appeared to involve the epidermal layers only . He is discharged home now on Septra one PO BID comes 10 days. The pathology grew coagulase -negative Staphylococcus aureus. Home health will apply Santyl to the wound for the remaining crust and dress it daily. I will see him in one week in follow up. He may require skin grafting of this wound. Instructions Instructions: Hand Washing, [id number] How to Change Your Dressing, [id number] Form - Daily Diabetes Record Wound Care, Adult Mechanical Wound Debridement, Care After Cellulitis, Adult, [id number] Hypertension, [id number] Forms: General Consent Excuse From Work or School Precautions for COVID19 [facility] Patient Portal Social Distancing
[2021-05-02 12:20] VITALS: BP 149/70
== END 2021-05-02 12:45 | disposition home health service (06) | DRG 603 ==
LOC: ER 16:19 → OBS 23:11
PROVIDERS: ADMIT Surgery; ATTEND Obstetrics & Gynecology Obstetrics

== ENCOUNTER 2023-03-04 12:47 | Inpatient (IN) ==
[2023-03-04 17:05] VITALS: BMI 36.6
[2023-03-04 22:54] LABS: BASOPHILS % (AUTO) 0.3 % (0.2-1.0); EOSINOPHILS # (AUTO) 0.2 x10^3/uL (0.0-0.2); EOSINOPHILS % (AUTO) 1.7 % (0.9-2.9); HEMATOCRIT 41.6 % (42.0-54.0); HEMOGLOBIN 14.2 g/dL (13.5-18.0); LYMPHOCYTES % (AUTO) 7.3 % (21.0-51.0); MEAN CORPUSCULAR HEMOGLOBIN 29.2 pg (27.0-34.0); MEAN CORPUSCULAR HGB CONC 34.1 g/dL (33.0-35.0); MEAN CORPUSCULAR VOLUME 85.6 fL (80.0-100.0); MEAN PLATELET VOLUME 8.4 fL (7.4-11.0); MONOCYTES # (AUTO) 0.9 x10^3/uL (0.3-0.8); MONOCYTES % (AUTO) 6.5 % (0.0-13.0); NEUTROPHILS # (AUTO) 11.7 x10^3/uL (2.2-4.8); NEUTROPHILS % (AUTO) 84.2 % (42.0-75.0); PLATELET COUNT 207 X10^3/uL (150.0-450.0); RED BLOOD COUNT 4.86 X10^6/uL (4.7-6.0); RED CELL DISTRIBUTION WIDTH 16.2 % (11.6-16.5); WHITE BLOOD COUNT 13.9 X10^3/uL (3.6-10.0)
[2023-03-04] MEDS ORDERED: ZOSYN VIAL 3.375 GRAMS 3.375 G in NS 100 ML IV 100 ML IV SCH (23:00)
[2023-03-04 23:02] LABS: ALANINE AMINOTRANSFERASE 21 Units/L (12-78); ALKALINE PHOSPHATASE 102 Units/L (46-116); ASPARTATE AMINO TRANSFERASE 15 Units/L (15-37); BLOOD UREA NITROGEN 39 mg/dL (7-18); CALCIUM 8.7 mg/dL (8.5-10.1); CARBON DIOXIDE 26.4 mmol/L (21-32); CHLORIDE 99 mmol/L (98-107); COR CA(FOR HYPOALB) 9.5 mg/dL (8.5-10.1); COR NA(FOR HYPERGLY) 139 mmol/L (136-145); GLUCOSE 187 mg/dL (65-99); POTASSIUM 3.9 mmol/L (3.5-5.1); SODIUM 137 mmol/L (136-145); TOTAL PROTEIN 7.5 g/dL (6.4-8.2); eGFR NON BLACK RACES 51 (>60)
[2023-03-04] MEDS: LR 1,000 ML IV 1,000 ML IV SCH (23:34)
--- NOTE | 2023-03-05 03:00 | DR.UPDATE ---
H&P UPDATE Review Yes Any changes to H&P?: No
[2023-03-05] MEDS ORDERED: ZOSYN VIAL 3.375 GRAMS 3.375 G in NS 100 ML IV 100 ML IV SCH (06:00)
[2023-03-05] MEDS ORDERED: CONSULT PHARMACY - POTASSIUM & MAGNESIUM XX SCH (08:00)
[2023-03-05] MEDS: PriLOSEC PO SCH (08:05)
[2023-03-05] MEDS: ZESTRIL TAB 40 MG PO SCH (08:05)
[2023-03-05] MEDS: PLAVIX PO SCH (08:05)
[2023-03-05] MEDS: ASPIRIN EC 81 MG PO SCH (08:05)
[2023-03-05] MEDS: COREG TAB 25 MG PO SCH (08:05)
[2023-03-05] MEDS: ACTOS PO SCH (08:11)
[2023-03-05] MEDS: PATIENT'S HOME MEDICATION PO SCH (08:11)
[2023-03-05] MEDS ORDERED: KLOR-CON PO SCH (08:15)
[2023-03-05] MEDS ORDERED: CRESTOR TAB 10 MG PO SCH (09:00)
[2023-03-05] MEDS: LIORESAL PO SCH ×3 (10:09→21:19)
--- NOTE | 2023-03-05 10:11 | DR.H&P ---
H&P History & Physical for Day of: H&P Date: 03/04/23 Chief Complaint Chief Complaint: Swelling and redness of the left leg Allergies Allergies Allergy/AdvReac Type Severity Reaction Status Date / Time No Known Drug Allergies Allergy Unknown Unverified 05/05/21 09:49 History of Present Illness History of Present Illness: this is a 57 year old male who had presented originally in 2020 with open wounds to the left leg requiring incision and drainage. Patient discovered to have significant left iliac vein compression and underwent iliac vein stenting at that time. He has been maintained on po Plavix and aspirin . He had acute onset of increased swelling and redness /cyanosis of the left leg from the knee down approximately one week previously. Past Medical History Past Medical History: CVA, Diabetes, Dyslipidemia, GERD and Hypertension Additional Medical History: Difficulty urinating Past Surgical History Surgical History: Appendectomy and Ortho Surgery Family History Family Medical History: Diabetes Mellitus Social History Does patient currently use any type of tobacco product: No Have you used tobacco products in the last 12 months: No Type of Tobacco Use: None Alcohol Use: None Drug Use: None Medications Home Medications: Home Medications Medication Instructions Recorded Confirmed Type omeprazole 20 mg capsule,delayed 20 mg PO DAILY 02/15/19 03/04/23 History release clopidogrel 75 mg tablet 75 mg PO DAILY 04/16/21 03/04/23 History lisinopril 40 mg tablet 40 mg PO DAILY 04/16/21 03/04/23 History aspirin 81 mg tablet,delayed 81 mg PO DAILY 04/28/21 03/04/23 History release dapagliflozin 5 mg-metformin ER 2 tab PO QAM 04/28/21 03/04/23 History 1,000 mg tablet,extended release 24hr (Xigduo XR) rosuvastatin 20 mg tablet (Crestor) 20 mg PO DAILY 04/28/21 03/04/23 History carvedilol 25 mg tablet 25 mg PO DAILY 03/04/23 03/04/23 History fluconazole 200 mg tablet 400 mg PO 2XW 03/04/23 03/04/23 History pioglitazone 15 mg tablet 15 mg PO QDAY 03/04/23 03/04/23 History tamsulosin 0.4 mg capsule 0.4 mg PO HS 03/04/23 03/04/23 History Labs Result Diagrams: 03/04/23 22:40 03/04/23 22:40 Labs: Laboratory WBC 13.9 X10^3/uL (3.6-10.0) H 03/04/23 22:40 RBC 4.86 X10^6/uL (4.7-6.0) 03/04/23 22:40 Hgb 14.2 g/dL (13.5-18.0) 03/04/23 22:40 Hct 41.6 % (42.0-54.0) L 03/04/23 22:40 MCV 85.6 fL (80.0-100.0) 03/04/23 22:40 MCH 29.2 pg (27.0-34.0) 03/04/23 22:40 MCHC 34.1 g/dL (33.0-35.0) 03/04/23 22:40 RDW 16.2 % (11.6-16.5) 03/04/23 22:40 Plt Count 207 X10^3/uL (150.0-450.0) 03/04/23 22:40 MPV 8.4 fL (7.4-11.0) 03/04/23 22:40 Neut % (Auto) 84.2 % (42.0-75.0) H 03/04/23 22:40 Lymph % (Auto) 7.3 % (21.0-51.0) L 03/04/23 22:40 [place] % (Auto) 6.5 % (0.0-13.0) 03/04/23 22:40 Eos % (Auto) 1.7 % (0.9-2.9) 03/04/23 22:40 Baso % (Auto) 0.3 % (0.2-1.0) 03/04/23 22:40 Neut # (Auto) 11.7 x10^3/uL (2.2-4.8) H 03/04/23 22:40 Lymph # (Auto) 1.0 X10^3/uL (1.3-2.9) L 03/04/23 22:40 [place] # (Auto) 0.9 x10^3/uL (0.3-0.8) H 03/04/23 22:40 Eos # (Auto) 0.2 x10^3/uL (0.0-0.2) 03/04/23 22:40 Baso # (Auto) 0.0 X10^3/uL (0.0-0.1) 03/04/23 22:40 Absolute Nucleated RBC 0.0 /100WBC 03/04/23 22:40 Sodium 137 mmol/L (136-145) 03/04/23 22:40 Corrected Sodium 139 mmol/L (136-145) 03/04/23 22:40 Potassium 3.9 mmol/L (3.5-5.1) 03/04/23 22:40 Chloride 99 mmol/L (98-107) 03/04/23 22:40 Carbon Dioxide 26.4 mmol/L (21-32) 03/04/23 22:40 BUN 39 mg/dL (7-18) H 03/04/23 22:40 Creatinine 1.50 mg/dL (0.70-1.30) H 03/04/23 22:40 Est GFR (MDRD) Af Amer > 60 (>60) 03/04/23 22:40 Est GFR (MDRD) Non-Af 51 (>60) L 03/04/23 22:40 Glucose 187 mg/dL (65-99) H 03/04/23 22:40 Calcium 8.7 mg/dL (8.5-10.1) 03/04/23 22:40 Corrected Calcium 9.5 mg/dL (8.5-10.1) 03/04/23 22:40 Total Bilirubin 1.00 mg/dL (0.2-1.0) 03/04/23 22:40 AST 15 Units/L (15-37) 03/04/23 22:40 ALT 21 Units/L (12-78) 03/04/23 22:40 Alkaline Phosphatase 102 Units/L (46-116) 03/04/23 22:40 Total Protein 7.5 g/dL (6.4-8.2) 03/04/23 22:40 Albumin 3.0 g/dL (3.4-5.0) L 03/04/23 22:40 Globulin 4.5 g/dL (2.5-4.5) 03/04/23 22:40 Albumin/Globulin Ratio 0.7 Ratio (1.1-2.1) L 03/04/23 22:40 Review of Systems Constitutional: See HPI Eyes: No Symptoms Reported ENT: No Symptoms Reported Respiratory: No Symptoms Reported Cardiovascular: No Symptoms Reported Gastrointestinal: No Symptoms Reported Genitourinary: No Symptoms Reported Musculoskeletal: No Symptoms Reported Skin: See HPI Physical Exam Vital Signs: Vital Signs Temperature 99.3 F Temperature 99.1 F Pulse Rate [Apical] 102 Pulse Rate [Apical] 99 Respiratory Rate 20 Respiratory Rate 20 Blood Pressure [Right Arm] 113/64 Blood Pressure [Right Arm] 130/75 O2 Sat by Pulse Oximetry 96 O2 Sat by Pulse Oximetry 96 Oriented: Normal, Time, Person and Place Eyes: Normal Ear: Normal Nose: Normal Throat: Normal Respiratory: Clear Throughout Cardiovascular: Normal : Normal Auscultation: Bowel Sounds: Normal Palpation: Normal Tenderness: Normal Skin: Other (increased redness and swelling right leg below knee) Musculoskeletal: Normal Affect: Normal Speech Pattern: Clear Assessment/Plan (1) Cellulitis of left lower limb: Status: Acute Plan: Will obtain venous Doppler to rule out DVT. Will continue IV antibiotics. Elevate leg.
--- NOTE | 2023-03-05 10:20 | NOTE.SOAP ---
Soap Note Note for Day of Date of Exam: 03/05/23 Subjective Data Subjective Data: 57 year old male with history of deep Venous Thrombosis and venous insufficiency of the left leg who has had a left iliac vein stent placed. Presented with acute swelling and redness of the left leg. Admitted with potential diagnosis of cellulitis and started on IV antibiotics. Objective Data Temperature: 97.6 F Pulse Rate: 91 Respiratory Rate: 20 Blood Pressure: 124/56 Objective Data: still with significant redness of the left leg As well as swelling . Assessment Assessment: cellulitis/possible DVT left leg Plan Plan: continue IV antibiotics. For left leg venous Doppler study later today
[2023-03-05] MEDS: LR 1,000 ML IV 1,000 ML IV SCH (11:36)
--- NOTE | 2023-03-05 12:30 | VAS ---
HISTORYcellulitis lt legExtremity pain, swelling, and edemaStudy: Left lower extremity Doppler venous ultrasound.TECHNIQUE: Multiple grande scale and color flow Doppler images of the deep venous system were obtained of the [left] lower extremity.FINDINGS: The deep venous system of the [left] lower extremity evaluated from the level of the common femoral vein through the popliteal vein. Normal color flow and augmentation can be observed. In addition, normal compression is seen throughout the deep venous system. No Tony's cyst is seen.IMPRESSION:1. Negative examination for DVT.Electronically signed by: SHA SINGER III (Mar 05, 2023 12:28:45)
[2023-03-05] MEDS: ZOSYN VIAL 3.375 GRAMS 3.375 G in NS 100 ML IV 100 ML IV SCH ×2 (13:37→21:22)
[2023-03-05] MEDS ORDERED: MAALOX or MYLANTA PO PRN (17:18)
--- NOTE | 2023-03-05 20:53 | DR.CONSULT ---
CONSULT Consultation for Day of: Date: 03/05/23 Chief Complaint Chief Complaint: Medical consult for left lower extremity cellulitis Allergies Allergies Allergy/AdvReac Type Severity Reaction Status Date / Time No Known Drug Allergies Allergy Unknown Unverified 05/05/21 09:49 History of Present Illness History of Present Illness: This is a pleasant 57-year-old white male who was admitted by vascular surgeon Dr. Amandeep East for left lower extremity cellulitis and possible DVT. Onset of patient's symptoms were several days ago which is why we can erythematous and warm. He has also become more tender and painful over the last several days. Patient has a history of diabetes mellitus type 2, hyperlipidemia, CVA in the past and GERD. Past Medical History Past Medical History: CVA, Diabetes, Dyslipidemia, GERD and Hypertension Additional Medical History: Difficulty urinating Past Surgical History Surgical History: Appendectomy and Ortho Surgery Family History Family Medical History: Diabetes Mellitus Social History Does patient currently use any type of tobacco product: No Have you used tobacco products in the last 12 months: No Type of Tobacco Use: None Alcohol Use: None Drug Use: None Medications Home Medications: No Known Drug Allergies Allergy (Unknown, Unverified 05/05/21 09:49) CONTINUE taking the following medications carvedilol 25 mg tablet 25 mg PO DAILY 03/04/23 [History] fluconazole 200 mg tablet 400 mg PO 2XW 03/04/23 [History] tamsulosin 0.4 mg capsule 0.4 mg PO HS 03/04/23 [History] Review of Systems Constitutional: Fever, Chills and Weakness Eyes: No Symptoms Reported ENT: No Symptoms Reported Respiratory: No Symptoms Reported Cardiovascular: No Symptoms Reported Gastrointestinal: No Symptoms Reported Genitourinary: No Symptoms Reported Musculoskeletal: Leg Pain Skin: Other (Left lower extremity redness and tenderness.) Neurological: No Symptoms Reported Physical Exam Vital Signs: Vital Signs Temperature 97.9 F Pulse Rate [Apical] 93 Respiratory Rate 20 Blood Pressure [Right Arm] 116/66 O2 Sat by Pulse Oximetry 98 Oriented: Normal, Time, Person and Place Eyes: Normal Ear: Normal Nose: Normal Throat: Normal Respiratory: Clear Throughout Cardiovascular: Normal : Normal Auscultation: Bowel Sounds: Normal Palpation: Normal Tenderness: Normal Skin: Normal Musculoskeletal: Normal Psychiatric: Normal Mood Description: Calm Affect: Normal Speech Pattern: Clear and Appropriate Plan (1) Cellulitis of left lower limb: Status: Acute Plan: Continue Zosyn. I will go ahead and check ESR and CRP today and check them daily thereafter. (2) Hypertension: Status: Acute Plan: Continue carvedilol and lisinopril. (3) Diabetes: Status: Acute Plan: Continue pioglitazone (4) Acid reflux: Status: Acute Plan: Continue omeprazole. (5) Hypercholesteremia: Status: Acute Plan: Continue rosuvastatin 20 mg at at bedtime. (6) History of CVA (cerebrovascular accident): Status: Acute Plan: Continue Plavix 75 mg daily and rosuvastatin 20 mg at bedtime and strict blood pressure control with lisinopril and carvedilol with a baby aspirin daily. (7) Benign prostatic hyperplasia with urinary frequency: Status: Acute Plan: Continue tamsulosin 0.4 mg at bedtime.
[2023-03-05] MEDS ORDERED: FLOMAX PO SCH (21:00)
[2023-03-05] MEDS: CRESTOR TAB 10 MG PO SCH (21:19)
[2023-03-05] MEDS: FLOMAX PO SCH (21:19)
[2023-03-06] MEDS: LR 1,000 ML IV 1,000 ML IV SCH ×2 (01:26→14:53)
[2023-03-06] MEDS: LIORESAL PO SCH ×3 (05:22→21:44)
[2023-03-06] MEDS: ZOSYN VIAL 3.375 GRAMS 3.375 G in NS 100 ML IV 100 ML IV SCH ×2 (05:23→14:49)
[2023-03-06 06:58] LABS: ALANINE AMINOTRANSFERASE 22 Units/L (12-78); ALBUMIN 2.7 g/dL (3.4-5.0); ALKALINE PHOSPHATASE 110 Units/L (46-116); ASPARTATE AMINO TRANSFERASE 16 Units/L (15-37); BLOOD UREA NITROGEN 15 mg/dL (7-18); CALCIUM 8.8 mg/dL (8.5-10.1); CARBON DIOXIDE 28.6 mmol/L (21-32); CHLORIDE 102 mmol/L (98-107); COR CA(FOR HYPOALB) 9.8 mg/dL (8.5-10.1); COR NA(FOR HYPERGLY) 140 mmol/L (136-145); CREATININE 0.87 mg/dL (0.70-1.30); GLUCOSE 134 mg/dL (65-99); POTASSIUM 3.5 mmol/L (3.5-5.1); SODIUM 139 mmol/L (136-145); eGFR NON BLACK RACES > 60 (>60)
[2023-03-06 07:06] LABS: ERYTHROCYTE SEDIMENTATION RATE 92 MM/HOUR (0-15)
[2023-03-06 07:09] LABS: BASOPHILS % (AUTO) 0.4 % (0.2-1.0); EOSINOPHILS # (AUTO) 0.4 x10^3/uL (0.0-0.2); EOSINOPHILS % (AUTO) 4.2 % (0.9-2.9); HEMATOCRIT 39.4 % (42.0-54.0); HEMOGLOBIN 13.5 g/dL (13.5-18.0); LYMPHOCYTES # (AUTO) 1.8 X10^3/uL (1.3-2.9); LYMPHOCYTES % (AUTO) 19.1 % (21.0-51.0); MEAN CORPUSCULAR HEMOGLOBIN 29.2 pg (27.0-34.0); MEAN CORPUSCULAR HGB CONC 34.3 g/dL (33.0-35.0); MEAN CORPUSCULAR VOLUME 85.2 fL (80.0-100.0); MEAN PLATELET VOLUME 8.6 fL (7.4-11.0); MONOCYTES # (AUTO) 0.8 x10^3/uL (0.3-0.8); MONOCYTES % (AUTO) 8.4 % (0.0-13.0); NEUTROPHILS # (AUTO) 6.5 x10^3/uL (2.2-4.8); NEUTROPHILS % (AUTO) 67.9 % (42.0-75.0); PLATELET COUNT 227 X10^3/uL (150.0-450.0); RED BLOOD COUNT 4.62 X10^6/uL (4.7-6.0); RED CELL DISTRIBUTION WIDTH 15.6 % (11.6-16.5); WHITE BLOOD COUNT 9.6 X10^3/uL (3.6-10.0)
[2023-03-06] MEDS ORDERED: CONSULT PHARMACY - POTASSIUM & MAGNESIUM XX SCH (08:00)
[2023-03-06] MEDS: ASPIRIN EC 81 MG PO SCH (08:46)
[2023-03-06] MEDS: COREG TAB 25 MG PO SCH (08:47)
[2023-03-06] MEDS: PLAVIX PO SCH (08:47)
[2023-03-06] MEDS: PriLOSEC PO SCH (08:47)
[2023-03-06] MEDS: ACTOS PO SCH (08:47)
[2023-03-06] MEDS: PATIENT'S HOME MEDICATION PO SCH (08:47)
[2023-03-06] MEDS: ZESTRIL TAB 40 MG PO SCH (08:47)
[2023-03-06] MEDS ORDERED: PLAVIX PO SCH (09:00)
[2023-03-06] MEDS ORDERED: ASPIRIN EC 81 MG PO SCH (09:00)
[2023-03-06] MEDS ORDERED: ZESTRIL TAB 40 MG PO SCH (09:00)
[2023-03-06] MEDS ORDERED: K-DUR TAB 20 MEQ PO SCH (09:00)
[2023-03-06] MEDS ORDERED: COREG TAB 25 MG PO SCH (09:00)
[2023-03-06] MEDS ORDERED: VANCOMYCIN IV *PREMIX 1 G/200 ML BAG 1 G/200 ML PIGGYBACK IV SCH (20:04)
--- NOTE | 2023-03-06 20:16 | DR.PROGNOT ---
HOSPITAL PROGRESS NOTE Progress Note for Day of: Progress Note Date: 03/06/23 Chief Complaint Chief Complaint: moderate pain Lt lower extr. venous study is negative for DVT . mild drainage from the great toe . ESR 92 .. CRP 110.3. BG 134. temp was 99.1 Past Medical Family Social History Allergies: Allergies No Known Drug Allergies Allergy (Unknown, Unverified 05/05/21 09:49) Onset Date: 05/05/2021 Vital Signs Vital Signs: Vital Signs Temperature 97.9 F Pulse Rate [Apical] 89 Respiratory Rate 18 Blood Pressure [Right Arm] 141/65 O2 Sat by Pulse Oximetry 98 Physical Exam Oriented: Normal, Time, Person and Place Eyes: Normal Ear: Normal Nose: Normal Throat: Normal Cardiovascular: Normal : Normal GI:Auscultation: Normal GI:Palpation: Normal GI: Tenderness: Normal Skin: Other (2 x 1 cm oper area LT great toe with mild drainage .. erythema and edema 2 + Lt leg .. Pulses + ) Musculoskeletal: Normal Psychiatric: Normal Mood Description: Calm Affect: Normal Speech Pattern: Clear and Appropriate Laboratory and Diagnostics Result Diagrams: 03/06/23 05:41 03/06/23 05:41 Labs: Laboratory WBC 9.6 X10^3/uL (3.6-10.0) 03/06/23 05:41 RBC 4.62 X10^6/uL (4.7-6.0) L 03/06/23 05:41 Hgb 13.5 g/dL (13.5-18.0) 03/06/23 05:41 Hct 39.4 % (42.0-54.0) L 03/06/23 05:41 MCV 85.2 fL (80.0-100.0) 03/06/23 05:41 MCH 29.2 pg (27.0-34.0) 03/06/23 05:41 MCHC 34.3 g/dL (33.0-35.0) 03/06/23 05:41 RDW 15.6 % (11.6-16.5) 03/06/23 05:41 Plt Count 227 X10^3/uL (150.0-450.0) 03/06/23 05:41 MPV 8.6 fL (7.4-11.0) 03/06/23 05:41 Neut % (Auto) 67.9 % (42.0-75.0) 03/06/23 05:41 Lymph % (Auto) 19.1 % (21.0-51.0) L 03/06/23 05:41 [place] % (Auto) 8.4 % (0.0-13.0) 03/06/23 05:41 Eos % (Auto) 4.2 % (0.9-2.9) H 03/06/23 05:41 Baso % (Auto) 0.4 % (0.2-1.0) 03/06/23 05:41 Neut # (Auto) 6.5 x10^3/uL (2.2-4.8) H 03/06/23 05:41 Lymph # (Auto) 1.8 X10^3/uL (1.3-2.9) 03/06/23 05:41 [place] # (Auto) 0.8 x10^3/uL (0.3-0.8) 03/06/23 05:41 Eos # (Auto) 0.4 x10^3/uL (0.0-0.2) H 03/06/23 05:41 Baso # (Auto) 0.0 X10^3/uL (0.0-0.1) 03/06/23 05:41 Absolute Nucleated RBC 0.1 /100WBC 03/06/23 05:41 ESR 92 MM/HOUR (0-15) H 03/06/23 05:41 Sodium 139 mmol/L (136-145) 03/06/23 05:41 Corrected Sodium 140 mmol/L (136-145) 03/06/23 05:41 Potassium 3.5 mmol/L (3.5-5.1) 03/06/23 05:41 Chloride 102 mmol/L (98-107) 03/06/23 05:41 Carbon Dioxide 28.6 mmol/L (21-32) 03/06/23 05:41 BUN 15 mg/dL (7-18) 03/06/23 05:41 Creatinine 0.87 mg/dL (0.70-1.30) 03/06/23 05:41 Est GFR (MDRD) Af Amer > 60 (>60) 03/06/23 05:41 Est GFR (MDRD) Non-Af > 60 (>60) 03/06/23 05:41 Glucose 134 mg/dL (65-99) H 03/06/23 05:41 POC Glucose (mg/dL) 170 mg/dL (65-99) H 03/06/23 19:37 Calcium 8.8 mg/dL (8.5-10.1) 03/06/23 05:41 Corrected Calcium 9.8 mg/dL (8.5-10.1) 03/06/23 05:41 Magnesium 2.0 mg/dL (2.0-2.9) 03/06/23 05:41 Total Bilirubin 0.50 mg/dL (0.2-1.0) 03/06/23 05:41 AST 16 Units/L (15-37) 03/06/23 05:41 ALT 22 Units/L (12-78) 03/06/23 05:41 Alkaline Phosphatase 110 Units/L (46-116) 03/06/23 05:41 C-Reactive Protein 110.30 mg/L (0-3.0) H 03/06/23 05:41 Total Protein 7.0 g/dL (6.4-8.2) 03/06/23 05:41 Albumin 2.7 g/dL (3.4-5.0) L 03/06/23 05:41 Globulin 4.3 g/dL (2.5-4.5) 03/06/23 05:41 Albumin/Globulin Ratio 0.6 Ratio (1.1-2.1) L 03/06/23 05:41 Assessment and Plan 1: recurrent cellulitis Lt leg . started on Vancomycin . C&S Lt big toe . added Lovenox 40 SC . keep leg elevated .. medical cosult. 2: h/o MRSA Lt leg 3: DM and mild neuropathy
[2023-03-06 20:23] VITALS: RESP 20
[2023-03-06] MEDS ORDERED: VANCOMYCIN IV *PREMIX 1.75 G/350 ML BAG 1.75 G/350 ML PIGGYBACK IV ONE (21:00)
[2023-03-06] MEDS: BACTROBAN TOPICAL OINT TOP SCH (21:44)
[2023-03-06] MEDS: LOVENOX INJ 40 MG SYR SC SCH (21:45)
[2023-03-06] MEDS: CRESTOR TAB 10 MG PO SCH (21:45)
[2023-03-06] MEDS: FLOMAX PO SCH (21:45)
[2023-03-07] MEDS: LR 1,000 ML IV 1,000 ML IV SCH (02:44)
[2023-03-07 04:44] VITALS: O2SAT 97
[2023-03-07] MEDS: LIORESAL PO SCH ×2 (05:03→14:10)
[2023-03-07 06:06] LABS: BASOPHILS # (AUTO) 0.1 X10^3/uL (0.0-0.1); BASOPHILS % (AUTO) 0.6 % (0.2-1.0); EOSINOPHILS # (AUTO) 0.4 x10^3/uL (0.0-0.2); EOSINOPHILS % (AUTO) 3.9 % (0.9-2.9); HEMATOCRIT 37.6 % (42.0-54.0); HEMOGLOBIN 12.9 g/dL (13.5-18.0); LYMPHOCYTES # (AUTO) 2.2 X10^3/uL (1.3-2.9); LYMPHOCYTES % (AUTO) 24.2 % (21.0-51.0); MEAN CORPUSCULAR HEMOGLOBIN 29.1 pg (27.0-34.0); MEAN CORPUSCULAR HGB CONC 34.2 g/dL (33.0-35.0); MEAN CORPUSCULAR VOLUME 85.2 fL (80.0-100.0); MEAN PLATELET VOLUME 7.9 fL (7.4-11.0); MONOCYTES # (AUTO) 0.8 x10^3/uL (0.3-0.8); MONOCYTES % (AUTO) 9.2 % (0.0-13.0); NEUTROPHILS # (AUTO) 5.7 x10^3/uL (2.2-4.8); NEUTROPHILS % (AUTO) 62.1 % (42.0-75.0); PLATELET COUNT 244 X10^3/uL (150.0-450.0); RED BLOOD COUNT 4.41 X10^6/uL (4.7-6.0); RED CELL DISTRIBUTION WIDTH 15.6 % (11.6-16.5); WHITE BLOOD COUNT 9.2 X10^3/uL (3.6-10.0)
[2023-03-07 06:31] LABS: ALANINE AMINOTRANSFERASE 19 Units/L (12-78); ALBUMIN 2.4 g/dL (3.4-5.0); ALKALINE PHOSPHATASE 86 Units/L (46-116); ASPARTATE AMINO TRANSFERASE 13 Units/L (15-37); BLOOD UREA NITROGEN 10 mg/dL (7-18); CALCIUM 8.6 mg/dL (8.5-10.1); CARBON DIOXIDE 26.4 mmol/L (21-32); CHLORIDE 104 mmol/L (98-107); COR CA(FOR HYPOALB) 9.9 mg/dL (8.5-10.1); COR NA(FOR HYPERGLY) 141 mmol/L (136-145); CREATININE 0.79 mg/dL (0.70-1.30); GLUCOSE 115 mg/dL (65-99); POTASSIUM 3.6 mmol/L (3.5-5.1); SODIUM 141 mmol/L (136-145); TOTAL PROTEIN 6.6 g/dL (6.4-8.2); eGFR NON BLACK RACES > 60 (>60)
[2023-03-07] MEDS: ACTOS PO SCH (08:03)
[2023-03-07] MEDS: PriLOSEC PO SCH (08:03)
[2023-03-07] MEDS: ZESTRIL TAB 40 MG PO SCH (08:04)
[2023-03-07] MEDS: COREG TAB 25 MG PO SCH (08:05)
[2023-03-07] MEDS: PLAVIX PO SCH (08:06)
[2023-03-07] MEDS: LOVENOX INJ 40 MG SYR SC SCH (08:06)
[2023-03-07] MEDS ORDERED: K-DUR TAB 20 MEQ PO ONE (09:00)
[2023-03-07] MEDS ORDERED: VANCOMYCIN IV *PREMIX 1.75 G/350 ML BAG 1.75 G/350 ML PIGGYBACK IV SCH (09:00)
[2023-03-07] MEDS ORDERED: CONSULT PHARMACY - POTASSIUM & MAGNESIUM XX SCH (09:00)
[2023-03-07] MEDS: BACTROBAN TOPICAL OINT TOP SCH (09:40)
[2023-03-07] MEDS: ASPIRIN EC 81 MG PO SCH (09:40)
[2023-03-07] MEDS: PATIENT'S HOME MEDICATION PO SCH (09:40)
[2023-03-07] MEDS: MAG-OX TAB PO SCH ×2 (10:04→11:16)
[2023-03-07 12:17] VITALS: BP 148/70; PULSE 82; TEMP 98
--- NOTE | 2023-03-08 07:25 | PCM.PROG ---
Progress Note Progress Note for Day of Date of Exam: 03/07/23 Subjective Subjective: Pt is a 57 year old male admitted for left lower extremity cellulitis. This morning he reports improvement in symptoms. He is anxious about going home. No acute events overnight. Medicine consulted for medical management. Labs/imaging: Wbc 9.2, Hgb 12.9, Plt 244, Na 141, K 3.6, Creatinine 0.79, Glucose 115. Pt is currently receiving IV Vancomycin. Venous duplex negative for DVT. Pt appears to be improving. Surgery is primary for discharge planning. Past Medical Family Social History Allergies: Allergies No Known Drug Allergies Allergy (Unknown, Unverified 05/05/21 09:49) Onset Date: 05/05/2021 Review of Systems ROS changes noted: see HPI Vital Signs and I&O's Intake and Output: Intake & Output 03/05/23 03/06/23 03/07/23 03/08/23 23:59 23:59 23:59 23:59 Intake Total 3599 / 3599 5458 / 5458 1341 / 1341 Balance 3599 / 3599 5458 / 5458 1341 / 1341 Physical Exam Oriented: Normal, Time, Person and Place Eyes: Normal Ear: Normal Nose: Normal Throat: Normal Cardiovascular: Normal : Normal Auscultation: Bowel Sounds: Normal Tenderness: Normal Skin: Other (2 x 1 cm oper area LT great toe with mild drainage .. erythema and edema 2 + Lt leg .. Pulses + ) Musculoskeletal: Normal Psychiatric: Normal Mood Description: Calm Affect: Normal Speech Pattern: Clear and Appropriate Laboratory and Diagnostics Result Diagrams: 03/07/23 05:33 03/07/23 05:33 Labs: 03/06/23 20:40 Toe - Left Big Wound Gram Stain - Final 03/06/23 20:40 Toe - Left Big Wound Culture - Preliminary Laboratory WBC 9.2 X10^3/uL (3.6-10.0) 03/07/23 05:33 RBC 4.41 X10^6/uL (4.7-6.0) L 03/07/23 05:33 Hgb 12.9 g/dL (13.5-18.0) L 03/07/23 05:33 Hct 37.6 % (42.0-54.0) L 03/07/23 05:33 MCV 85.2 fL (80.0-100.0) 03/07/23 05:33 MCH 29.1 pg (27.0-34.0) 03/07/23 05:33 MCHC 34.2 g/dL (33.0-35.0) 03/07/23 05:33 RDW 15.6 % (11.6-16.5) 03/07/23 05:33 Plt Count 244 X10^3/uL (150.0-450.0) 03/07/23 05:33 MPV 7.9 fL (7.4-11.0) 03/07/23 05:33 Neut % (Auto) 62.1 % (42.0-75.0) 03/07/23 05:33 Lymph % (Auto) 24.2 % (21.0-51.0) 03/07/23 05:33 [place] % (Auto) 9.2 % (0.0-13.0) 03/07/23 05:33 Eos % (Auto) 3.9 % (0.9-2.9) H 03/07/23 05:33 Baso % (Auto) 0.6 % (0.2-1.0) 03/07/23 05:33 Neut # (Auto) 5.7 x10^3/uL (2.2-4.8) H 03/07/23 05:33 Lymph # (Auto) 2.2 X10^3/uL (1.3-2.9) 03/07/23 05:33 [place] # (Auto) 0.8 x10^3/uL (0.3-0.8) 03/07/23 05:33 Eos # (Auto) 0.4 x10^3/uL (0.0-0.2) H 03/07/23 05:33 Baso # (Auto) 0.1 X10^3/uL (0.0-0.1) 03/07/23 05:33 Absolute Nucleated RBC 0.1 /100WBC 03/07/23 05:33 ESR 92 MM/HOUR (0-15) H 03/06/23 05:41 Sodium 141 mmol/L (136-145) 03/07/23 05:33 Corrected Sodium 141 mmol/L (136-145) 03/07/23 05:33 Potassium 3.6 mmol/L (3.5-5.1) 03/07/23 05:33 Chloride 104 mmol/L (98-107) 03/07/23 05:33 Carbon Dioxide 26.4 mmol/L (21-32) 03/07/23 05:33 BUN 10 mg/dL (7-18) 03/07/23 05:33 Creatinine 0.79 mg/dL (0.70-1.30) 03/07/23 05:33 Est GFR (MDRD) Af Amer > 60 (>60) 03/07/23 05:33 Est GFR (MDRD) Non-Af > 60 (>60) 03/07/23 05:33 Glucose 115 mg/dL (65-99) H 03/07/23 05:33 POC Glucose (mg/dL) 128 mg/dL (65-99) H 03/07/23 11:13 Hemoglobin A1c 7.0 % 03/06/23 05:41 Calcium 8.6 mg/dL (8.5-10.1) 03/07/23 05:33 Corrected Calcium 9.9 mg/dL (8.5-10.1) 03/07/23 05:33 Magnesium 1.6 mg/dL (2.0-2.9) L 03/07/23 05:33 Total Bilirubin 0.50 mg/dL (0.2-1.0) 03/07/23 05:33 AST 13 Units/L (15-37) L 03/07/23 05:33 ALT 19 Units/L (12-78) 03/07/23 05:33 Alkaline Phosphatase 86 Units/L (46-116) 03/07/23 05:33 C-Reactive Protein 110.30 mg/L (0-3.0) H 03/06/23 05:41 Total Protein 6.6 g/dL (6.4-8.2) 03/07/23 05:33 Albumin 2.4 g/dL (3.4-5.0) L 03/07/23 05:33 Globulin 4.2 g/dL (2.5-4.5) 03/07/23 05:33 Albumin/Globulin Ratio 0.6 Ratio (1.1-2.1) L 03/07/23 05:33 Plan (1) Cellulitis of left lower limb: Status: Acute Plan: Will continue IV antibiotics. Elevate leg. (2) Hypertension: Status: Acute (3) Diabetes: Status: Acute (4) Acid reflux: Status: Acute (5) Hypercholesteremia: Status: Acute (6) History of CVA (cerebrovascular accident): Status: Acute (7) Benign prostatic hyperplasia with urinary frequency: Status: Acute
--- NOTE | 2023-03-09 01:25 | W.DIS.FURT ---
Summary of Discharge Discharge Summary of Date Date of Exam: 03/07/23 Admission Date Date of Admission: 03/04/23 Admission Diagnosis Hospital Course: This patient is a 57 year old male with past history of significant cellulitis and 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 He has had left common iliac vein stenting and presented to my office with increased swelling and redness of the left leg. He was admitted with a diagnosis of cellulitis. Placed on IV antibiotics to Include IV Zosyn . His wounds subsequently grew coagulase positive and coagulase-negative negative staphylococcus aureus. He has had treatment with Zosyn and Vancomycin and has had significant Improvement of the redness and was discharged home on March 07 on PO antibiotics to cover MRSA .Final sensitivities are not out yet. Vital Signs: Vital Signs (72 hours) 03/05/23 15:57 03/05/23 19:00 03/05/23 20:00 Temperature 97.9 F 98.5 F Pulse Rate [Apical] 93 H 93 H Respiratory Rate 20 20 Blood Pressure [Right Arm] 116/66 134/62 O2 Sat by Pulse Oximetry 98 95 Oxygen Delivery Method Room Air Room Air Room Air Oxygen Flow Rate 03/06/23 00:00 03/06/23 04:00 03/06/23 07:00 Temperature 98.2 F 98.4 F Pulse Rate [Apical] 92 H 90 Respiratory Rate 20 20 Blood Pressure [Right Arm] 129/72 132/74 O2 Sat by Pulse Oximetry 97 97 Oxygen Delivery Method Room Air Room Air Room Air Oxygen Flow Rate 0 03/06/23 08:00 03/06/23 12:00 03/06/23 16:00 Temperature 98.2 F 98.1 F 97.9 F Pulse Rate [Apical] 79 83 89 Respiratory Rate 18 20 18 Blood Pressure [Right Arm] 120/60 128/62 141/65 O2 Sat by Pulse Oximetry 98 93 L 98 Oxygen Delivery Method Room Air Room Air Room Air Oxygen Flow Rate 03/06/23 20:00 03/06/23 19:00 03/07/23 00:00 Temperature 98.4 F 98.2 F Pulse Rate [Apical] 93 H 95 H Respiratory Rate 20 20 Blood Pressure [Right Arm] 132/75 135/64 O2 Sat by Pulse Oximetry 95 94 L Oxygen Delivery Method Room Air Room Air Room Air Oxygen Flow Rate 03/07/23 04:00 03/07/23 07:00 03/07/23 08:00 Temperature 97.8 F 97.8 F Pulse Rate [Apical] 85 88 Respiratory Rate 20 20 Blood Pressure [Right Arm] 151/67 156/74 O2 Sat by Pulse Oximetry 97 97 Oxygen Delivery Method Room Air Room Air Room Air Oxygen Flow Rate 03/07/23 12:00 Temperature 98 F Pulse Rate [Apical] 82 Respiratory Rate 20 Blood Pressure [Right Arm] 148/70 O2 Sat by Pulse Oximetry 97 Oxygen Delivery Method Room Air Oxygen Flow Rate Labs: Laboratory Last Values WBC 9.2 X10^3/uL (3.6-10.0) 03/07/23 05:33 RBC 4.41 X10^6/uL (4.7-6.0) L 03/07/23 05:33 Hgb 12.9 g/dL (13.5-18.0) L 03/07/23 05:33 Hct 37.6 % (42.0-54.0) L 03/07/23 05:33 MCV 85.2 fL (80.0-100.0) 03/07/23 05:33 MCH 29.1 pg (27.0-34.0) 03/07/23 05:33 MCHC 34.2 g/dL (33.0-35.0) 03/07/23 05:33 RDW 15.6 % (11.6-16.5) 03/07/23 05:33 Plt Count 244 X10^3/uL (150.0-450.0) 03/07/23 05:33 MPV 7.9 fL (7.4-11.0) 03/07/23 05:33 Neut % (Auto) 62.1 % (42.0-75.0) 03/07/23 05:33 Lymph % (Auto) 24.2 % (21.0-51.0) 03/07/23 05:33 [place] % (Auto) 9.2 % (0.0-13.0) 03/07/23 05:33 Eos % (Auto) 3.9 % (0.9-2.9) H 03/07/23 05:33 Baso % (Auto) 0.6 % (0.2-1.0) 03/07/23 05:33 Neut # (Auto) 5.7 x10^3/uL (2.2-4.8) H 03/07/23 05:33 Lymph # (Auto) 2.2 X10^3/uL (1.3-2.9) 03/07/23 05:33 [place] # (Auto) 0.8 x10^3/uL (0.3-0.8) 03/07/23 05:33 Eos # (Auto) 0.4 x10^3/uL (0.0-0.2) H 03/07/23 05:33 Baso # (Auto) 0.1 X10^3/uL (0.0-0.1) 03/07/23 05:33 Absolute Nucleated RBC 0.1 /100WBC 03/07/23 05:33 ESR 92 MM/HOUR (0-15) H 03/06/23 05:41 Sodium 141 mmol/L (136-145) 03/07/23 05:33 Corrected Sodium 141 mmol/L (136-145) 03/07/23 05:33 Potassium 3.6 mmol/L (3.5-5.1) 03/07/23 05:33 Chloride 104 mmol/L (98-107) 03/07/23 05:33 Carbon Dioxide 26.4 mmol/L (21-32) 03/07/23 05:33 BUN 10 mg/dL (7-18) 03/07/23 05:33 Creatinine 0.79 mg/dL (0.70-1.30) 03/07/23 05:33 Est GFR (MDRD) Af Amer > 60 (>60) 03/07/23 05:33 Est GFR (MDRD) Non-Af > 60 (>60) 03/07/23 05:33 Glucose 115 mg/dL (65-99) H 03/07/23 05:33 POC Glucose (mg/dL) 128 mg/dL (65-99) H 03/07/23 11:13 Hemoglobin A1c 7.0 % 03/06/23 05:41 Calcium 8.6 mg/dL (8.5-10.1) 03/07/23 05:33 Corrected Calcium 9.9 mg/dL (8.5-10.1) 03/07/23 05:33 Magnesium 1.6 mg/dL (2.0-2.9) L 03/07/23 05:33 Total Bilirubin 0.50 mg/dL (0.2-1.0) 03/07/23 05:33 AST 13 Units/L (15-37) L 03/07/23 05:33 ALT 19 Units/L (12-78) 03/07/23 05:33 Alkaline Phosphatase 86 Units/L (46-116) 03/07/23 05:33 C-Reactive Protein 110.30 mg/L (0-3.0) H 03/06/23 05:41 Total Protein 6.6 g/dL (6.4-8.2) 03/07/23 05:33 Albumin 2.4 g/dL (3.4-5.0) L 03/07/23 05:33 Globulin 4.2 g/dL (2.5-4.5) 03/07/23 05:33 Albumin/Globulin Ratio 0.6 Ratio (1.1-2.1) L 03/07/23 05:33 Reason For Visit: CELLULITIS, POSSIBLE DVT LEFT LEG Discharge Date Discharge Date: 03/07/23 Discharge Diagnosis All Active Problems (Updated 03/05/23 @ 20:45 by MOISÉS BELL) Benign prostatic hyperplasia with urinary frequency (Acute) History of CVA (cerebrovascular accident) (Acute) Hypercholesteremia (Acute) Acid reflux (Acute) Hypertension (Acute) Diabetes (Acute) Ulcer of left lower extremity (Acute) Cellulitis of left lower limb (Acute) Plan of Treatment: Continue with present treatment and follow up plan. Pt is to keep follow up ap pointment as instructed and take medications as ordered.Follow-up Dr. East one week Discharge Medications Discharge Medications: No Known Drug Allergies Allergy (Unknown, Unverified 05/05/21 09:49) CONTINUE taking the following medications carvedilol 25 mg tablet 25 mg PO DAILY 03/04/23 [History] fluconazole 200 mg tablet 400 mg PO 2XW 03/04/23 [History] tamsulosin 0.4 mg capsule 0.4 mg PO HS 03/04/23 [History] New Prescriptions ciprofloxacin HCl 500 mg tablet 500 mg PO BID 10 days #20 tabs 03/07/23 [Rx] Discharge Disposition Assessment: See hospital course Discharge Plan Discharge Plan Hospital Course: This patient is a 57 year old male with past history of significant cellulitis and 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 He has had left common iliac vein stenting and presented to my office with increased swelling and redness of the left leg. He was admitted with a diagnosis of cellulitis. Placed on IV antibiotics to Include IV Zosyn . His wounds subsequently grew coagulase positive and coagulase-negative negative staphylococcus aureus. He has had treatment with Zosyn and Vancomycin and has had significant Improvement of the redness and was discharged home on March 07 on PO antibiotics to cover MRSA .Final sensitivities are not out yet. Patient Disposition: HOME, SELF-CARE Condition: Stable Health Concerns: Post Hospitalization: new medications and changes needed to prevent readmission or further decline. Pt educated and given instructions on all concerns. Plan of Treatment: Continue with present treatment and follow up plan. Pt is to keep follow up appointment as instructed and take medications as ordered.Follow-up Dr. East one week Assessment: See hospital course Prescription drug monitoring program results: PDMP reviewed and no concerns identified Prescriptions: New ciprofloxacin HCl 500 mg Tablet 500 mg PO BID 10 Days Qty: 20 0RF Continued pioglitazone 15 mg tablet 15 mg PO QDAY omeprazole 20 mg Capsule,Delayed Release(Dr/Ec) 20 mg PO DAILY lisinopril 40 mg Tablet 40 mg PO DAILY clopidogrel 75 mg Tablet 75 mg PO DAILY aspirin 81 mg Tablet,Delayed Release (Dr/Ec) 81 mg PO DAILY rosuvastatin [Crestor] 20 mg Tablet 20 mg PO DAILY Xigduo XR 5-1,000 mg Tablet, Ir - Er, Biphasic 24hr 2 tab PO QAM fluconazole 200 mg tablet 400 mg PO 2XW Rx Instructions: TAKE 2 TABLETS ON MONDAYS AND THURSDAYS UNTIL NAIL GROWN OUT tamsulosin 0.4 mg capsule 0.4 mg PO HS carvedilol 25 mg tablet 25 mg PO DAILY Follow ups/Referrals Follow ups/Referrals: JEET ALFARO [Primary Care Provider] - 1 WEEK HEMALATHA JEAN BAPTISTE [STAFF PHYSICIAN] - 03/09/23 Rafat East [STAFF PHYSICIAN] - 1 WEEK Instructions Instructions: Cellulitis, Adult, [id number], Ciprofloxacin tablets Stand Alone Forms: Excuse From Work or School, Post Hospital Follow Up Care
== END 2023-03-07 14:36 | disposition home or self-care (01) | DRG 603 ==
LOC: MED/SURG 14:59
PROVIDERS: ADMIT Surgery; ATTEND Surgery
DX: Z86.73 Personal history of transient ischemic attack (TIA), and cerebral infarction without residual deficits; L03.116 Cellulitis of left lower limb; E11.65 Type 2 diabetes mellitus with hyperglycemia; N40.1 Benign prostatic hyperplasia with lower urinary tract symptoms; R70.0 Elevated erythrocyte sedimentation rate; R35.0 Frequency of micturition; E78.00 Pure hypercholesterolemia, unspecified; B95.61 Methicillin susceptible Staphylococcus aureus infection as the cause of diseases classified elsewhere; K21.9 Gastro-esophageal reflux disease without esophagitis; I10 Essential (primary) hypertension; Z86.14 Personal history of Methicillin resistant Staphylococcus aureus infection